=== PATIENT | female | born 1935 | race Caucasian/White ===

== ENCOUNTER → 2016-07-13 | Outpatient (CLI) | payer MEDICARE, OTHER | END | disposition home or self-care (01) | LOC: GMAB 10:16 | PROVIDERS: ATTEND Family Medicine | DX: I10 Essential (primary) hypertension (principal) ==

== ENCOUNTER → 2016-08-25 | Outpatient (CLI) | payer MEDICARE, OTHER ==
--- NOTE | 2016-08-26 10:57 | MAM ---
History: Well woman exam. Date of exam: 08/25/2016 Services provided: Bilateral full field digital screening mammography. CAD, the images were reviewed with R2 computer aided detection. FINDINGS: Glandular tissue is scattered glandular contour. Comparison with 2014 exam. No dominant mass, architectural distortion or clustered microcalcification. IMPRESSION: Benign exam Recommendation: Routine annual mammography BIRAD CATEGORY: 2 BENIGN Electronically signed by: Erlinda Moreira MD 08/26/2016 10:42 AM CDT
== END ==
LOC: MAMMO 14:00
PROVIDERS: ATTEND Family Medicine
DX: Z12.31 Encounter for screening mammogram for malignant neoplasm of breast (principal)

== ENCOUNTER 2016-09-08 05:49 | Day surgery (SDC) | payer MEDICARE, OTHER ==
--- NOTE | 2016-08-26 09:52 | HP ---
CHIEF COMPLAINT: Cyst on digit. HISTORY OF PRESENT ILLNESS: Ms. Ewing is an 81-year-old female with a history of mass overlying the proximal proximal interphalangeal joint on the fourth digit on the left hand. She has had no trauma related to this, no neurologic symptoms, and denies any radiation of pain. She states it does cause some difficulty when she bumps the finger, but otherwise no acute pain Because of the cyst and the discomfort frequently associated with that, she would like to have excision of that cyst. We talked about the risks, benefits and alternatives to that and the patient has given informed consent. PAST SURGICAL HISTORY: 1. Hysterectomy. 2. Total knee replacement. MEDICATIONS: 1. Lyrica. 2. Ramipril. 3. Meclizine. 4. Atorvastatin. 5. Fenofibrate. 6. VESIcare. 7. Duloxetine. 8. Hydrocodone. 9. Gabapentin. ALLERGIES: NO KNOWN DRUG ALLERGIES. CODE STATUS: Full code. IMMUNIZATIONS: Up to date. SOCIAL HISTORY: The patient does not drink, smoke or use any illicit drugs. FAMILY HISTORY: None pertinent to today's complaint. REVIEW OF SYSTEMS: Negative except as indicated in the History of Present Illness. PHYSICAL EXAMINATION: VITAL SIGNS: Blood pressure 123/61. Pulse 74. Height 5'. Weight 165. MENTAL STATUS: The patient is awake, alert, and is able to give a good history and participate in the physical. The patient is oriented to person, place and time. SKIN: Normal tone and turgor. MUSCULOSKELETAL: She has about a 4 to 5 mm mass that does not appear to be fixed to the overlying skin. It does not move with tendon excursion. She does have some slight discomfort with deep palpation, however, there is no overlying erythema. She does maintain full range of motion in all the digits. ASSESSMENT: 1. Cyst. PLAN: The plan at this point is for excision of this cyst. We have discussed the risks, benefits, and alternatives to that inclusive of the possibility of recurrence and she understands and has given informed consent. #[id number] [facility]
[2016-09-08] MEDS ORDERED: LACTATED RINGERS 1,000 ML ONE (06:00)
[2016-09-08] MEDS ORDERED: ceFAZolin SODIUM 1 GM VIAL ONE (06:00)
[2016-09-08] MEDS ORDERED: SODIUM CHL 0.9% 100ML MINI-BAG 100 ML IVPB ONE (06:00)
[2016-09-08] MEDS ORDERED: PROPOFOL 200 MG/20 ML VIAL IV ONE (06:28)
[2016-09-08] MEDS ORDERED: LIDOCAINE 1% 10 ML VIAL INJ ONE (06:28)
[2016-09-08] MEDS ORDERED: fentaNYL CITRATE INJ 50 MCG/ML AMP IV ONE (06:28)
[2016-09-08] MEDS ORDERED: BUPIVACAINE 0.25% INJ 30 ML VIAL INJ ONE (06:31)
[2016-09-08] MEDS ORDERED: LIDOCAINE 1% 50 ML VIAL INJ ONE (06:31)
[2016-09-08 06:54] VITALS: O2SAT 96
[2016-09-08] MEDS: ceFAZolin SODIUM 1 GM VIAL ONE ×2 (07:24→07:35)
[2016-09-08] MEDS: VANCOMYCIN HCL INJ 1,000 MG VIAL IVPB ONE ×2 (07:25→07:35)
[2016-09-08 08:13] VITALS: BP 148/85; TEMP 96.6
--- NOTE | 2016-09-08 08:59 | OP ---
DATE OF PROCEDURE: 09/08/16 PREOPERATIVE DIAGNOSIS: 1. Ganglion cyst, left fourth proximal interphalangeal joint. POSTOPERATIVE DIAGNOSIS: 1. Ganglion cyst, left fourth proximal interphalangeal joint. PROCEDURE: 1. Excision of cyst. SURGEON: Jonny Mendosa MD. BARBED WIRE MACHINE OPERATOR: Antelmo Pichardo CST, SA-C. ANESTHESIA: Local with sedation. COMPLICATIONS: None. FINDINGS: About a 3 to 4 mm cyst arising from the proximal interphalangeal joint dorsally from the fourth digit. INDICATION: Ms. Ewing has a history of slowly growing mass with some irritation of the dorsum of the cyst. There is no evidence of infection. Because of the local irritation, she requested excision of the mass. After discussing the risks, benefits and alternatives to that, she has given informed consent for that. PROCEDURE: The patient was brought to the Operating Room and placed in supine position. Sedation was administered and a ring block was performed. Following that, the hand was sterilely prepped and draped. An incision was made directly over the mass. Blunt dissection was used to core out the mass and its stalk was identified. Following identification of the stalk, it was sharply transected and the base was cauterized. There was no evidence of remaining diseased tissue. The wound was irritated. Sterile dressings were placed. The patient was awoken from anesthesia and taken to Recovery. POSTOPERATIVE INSTRUCTIONS: She will followup with us in two days. #[id number] [facility]
== END 2016-09-08 08:15 | disposition home or self-care (01) ==
LOC: AMB 05:49
PROVIDERS: ATTEND Orthopaedic Surgery
DX: M67.442 Ganglion, left hand (principal); Z96.659 Presence of unspecified artificial knee joint; Z79.899 Other long term (current) drug therapy
CPT/HCPCS: 01810; 26160; 87070; 88304; J0690; J3010; J3370; J3490; J7050; J7120

== ENCOUNTER → 2016-09-16 | Outpatient (CLI) | payer MEDICARE, OTHER | END | disposition home or self-care (01) | LOC: GMAB 11:27 | PROVIDERS: ATTEND Family Medicine | DX: R53.82 Chronic fatigue, unspecified (principal); M25.572 Pain in left ankle and joints of left foot ==

== ENCOUNTER → 2016-09-30 | Outpatient (CLI) | payer MEDICARE, OTHER ==
--- NOTE | 2016-10-02 13:50 | RAD ---
EXAM DESCRIPTION: Shoulder,Right 2 or More Views CLINICAL HISTORY: 81 years,Female,PAIN IN RIGHT SHOULDER COMPARISON: None FINDINGS: The right shoulder demonstrates no evidence of fractures or dislocations or acute abnormalities. The acromial clavicular joint mildly hypertrophic mostly superior. The included lung gilman are unremarkable. There is no significant lateral down sloping of the acromion. But there is severe narrowing of the supraspinatus outlet with undersurface remodeling of the acromion. IMPRESSION: Right shoulder demonstrates Severe narrowing of the rotator cuff outlet with evidence of chronic findings indicating probable chronic rotator cuff injury. Moderate AC joint arthritis Electronically signed by: Sadiq Souza MD 10/02/2016 1:50 PM CDT
--- NOTE | 2016-10-02 13:50 | RAD ---
EXAM DESCRIPTION: Elbow,Right 3 Views CLINICAL HISTORY: 81 years,Female,PAIN IN RIGHT ELBOW COMPARISON: None FINDINGS: The right elbow demonstrates no evidence of fractures or acute abnormalities. There is no joint effusion. Soft tissues appear unremarkable. Minimal osteophyte changes about the right elbow IMPRESSION: Minimal right elbow osteoarthritic changes age appropriate. Electronically signed by: Sadiq Souza MD 10/02/2016 1:51 PM CDT
== END | disposition home or self-care (01) ==
LOC: RAD 08:33
PROVIDERS: ATTEND Orthopaedic Surgery
DX: M75.101 Unspecified rotator cuff tear or rupture of right shoulder, not specified as traumatic (principal)

== ENCOUNTER → 2016-12-01 | Outpatient (CLI) | payer MEDICARE, OTHER ==
--- NOTE | 2016-12-02 08:37 | CT ---
EXAM DESCRIPTION: Lumbar Spine CLINICAL HISTORY: 81 years, Female, LOW BACK PAIN COMPARISON: None TECHNIQUE: Lumbar CT with thin-section axial imaging with reconstructed MPR images reviewed as well. This exam was performed according to our departmental dose-optimization program, which includes automated exposure control, adjustment of the mA and/or kV according to patient size and/or use of iterative reconstruction technique. FINDINGS: Lumbar spine CT with MPR reformatted images demonstrates severe diffuse degenerative disc disease and vacuum phenomenon with relative sparing of the disc space at L3-4. Grade 2 spondylolisthesis of L5 on S1 with severe vacuum phenomenon and disc space narrowing and bilateral hypertrophic L5 pars defects are noted with marked distortion of the central canal and L5 neural foramina. Very mild grade 1 degenerative spondylolisthesis at L4-5 with marked posterior element facet hypertrophy is present without pars defects. Modest retrolisthesis at the L2-3 level is present. Vertebral height is maintained at all levels with endplate sclerotic and cystic degenerative changes and vacuum phenomenon at each disc level without compression deformities. The spine has essentially normal alignment from T12-L1 cephalad with preservation of disc height with mild a vacuum phenomena within each disc space at this level and T11-12. Very slight retrolisthesis of L1 on L2 is also apparent. The disc contours at T11-12 and T12-L1 are essentially normal with minimal annular prominence. Slight prominence of the disc at the L1-2 and L2-3 levels related to the retrolisthesis is noted with adequate central canal. Moderate annular bulge is present at L3-4 and a symmetric fashion with adequate canal and advanced facet arthropathy. At L4-5 advanced degenerative disc disease and vacuum phenomenon is present with severe facet arthropathy but adequate L4 neural foramina and central canal. At L5-S1 marked distortion of the canal is present. Vacuum phenomenon and bone on bone sclerotic appearance of the L5-S1 disc is present. Even with the bilateral L5 pars defects there is posterior element hypertrophy and borderline stenosis between the sacral promontory inferiorly and the hypertrophic posterior elements superiorly from the L4-5 level above. Borderline AP diameter canal stenosis is suspected. Below this level the upper sacral spinal canal is adequate. Coronal imaging demonstrate moderate dextroscoliosis of the spine with slightly greater narrowing of the left-sided neural foramen on this basis. The paraspinous region and retroperitoneum show no mass or hematoma or evidence of aneurysm. IMPRESSION: 1. Severe diffuse disc degenerative disease with vacuum phenomena and moderate dextroscoliosis of the spine with mild retrolisthesis of the vertebral bodies at L1-2 and L2-3 and degenerative spondylolisthesis at L4-5 and grade 2 spondylolisthesis with pars defects at L5-S1. 2. Significant distortion of the spinal canal and thecal sac with adequate canal throughout its course except for borderline AP diameter canal narrowing between the sacral promontory inferiorly at the L5-S1 level in the hypertrophic posterior elements superiorly at the L4-5 level. 3. Disc degeneration and vacuum phenomenon at essentially all levels visualized with relative sparing of the L3-4 disc level as well as T11-12 and T12-L1. No vertebral compression deformities or destructive process is seen. Electronically signed by: Tyree Jaimes MD 12/02/2016 8:35 AM CDT
== END | disposition home or self-care (01) ==
LOC: CT 09:41
PROVIDERS: ATTEND Physical Medicine & Rehabilitation
DX: M54.5 Low back pain (principal)

== ENCOUNTER → 2017-01-18 | Outpatient (CLI) | payer MEDICARE, OTHER ==
--- NOTE | 2017-01-18 10:51 | MAM ---
EXAM DESCRIPTION: Diagnostic Mammo,Right CLINICAL HISTORY: 81 yearsFemaleMASTODYNIA. Right breast enlarging. Remote family history of breast cancer. Postmenopausal. No HRT. COMPARISON: Digital screening bilateral study 08/25/2016. TECHNIQUE: Digital full field images of the right breast in the MLO, CC, and LM projections. CAD was utilized. FINDINGS: Breast density parenchymal pattern is scattered fibroglandular densities. Vascular calcifications. Scattered solitary microcalcifications anterior breast. Small axillary lymph nodes. No focal mass density, no focal asymmetry, and no suspicious microcalcifications. Stable mammograms compared to the prior right breast on the screening study in 08/25/2016. IMPRESSION: BI-RADS CATEGORY: 2 - BENIGN FINDINGS. FOLLOW UP: Return to routine digital bilateral screening, August 2017. Written communication explaining the IMPRESSION and follow-up, will be mailed to the patient and referring health care provider. According to the [employer], yearly mammograms are recommended starting at age 40 and continuing as long as a woman is in good health. Any breast change noted on a breast self-exam should be reported promptly to the patient's healthcare provider. Breast MRI is recommended for women with an approximately 20-25% or greater lifetime risk of breast cancer, including women with a strong family history of breast or ovarian cancer and women who have been treated for Hodgkin's disease. A negative mammographic report should not delay tissue diagnosis in patients with significant clinical history or physical findings. Extremely dense breast tissue limits the sensitivity of digital mammography. The results and follow-up were discussed by the technologist with the patient. Written communication explaining the results and followup will be mailed to the patient and referring care provider. Electronically signed by: Antelmo Ferraro MD 01/18/2017 10:49 AM CDT
== END | disposition home or self-care (01) ==
LOC: MAMMO 13:47
PROVIDERS: ATTEND Family Medicine
DX: N64.4 Mastodynia (principal)

== ENCOUNTER → 2017-03-23 | Outpatient (CLI) | payer MEDICARE, OTHER | END | disposition home or self-care (01) | LOC: GMAB 14:44 | PROVIDERS: ATTEND Family Medicine | DX: R11.2 Nausea with vomiting, unspecified (principal) ==

== ENCOUNTER → 2017-07-18 | Outpatient (CLI) | payer MEDICARE, OTHER | LOC: GMAB 11:33 | PROVIDERS: ATTEND Family Medicine | DX: I10 Essential (primary) hypertension (principal); N39.0 Urinary tract infection, site not specified ==

== ENCOUNTER → 2017-08-19 | Outpatient (CLI) | payer OTHER | LOC: LAB.O 10:11 | PROVIDERS: ATTEND Psychiatry & Neurology Neurology | DX: M45.0 Ankylosing spondylitis of multiple sites in spine (principal); G04.89 Other myelitis; G72.9 Myopathy, unspecified; M81.8 Other osteoporosis without current pathological fracture; G61.81 Chronic inflammatory demyelinating polyneuritis; B02.29 Other postherpetic nervous system involvement; M54.16 Radiculopathy, lumbar region; I73.00 Raynaud's syndrome without gangrene; G25.89 Other specified extrapyramidal and movement disorders; M32.10 Systemic lupus erythematosus, organ or system involvement unspecified; M31.6 Other giant cell arteritis; I77.9 Disorder of arteries and arterioles, unspecified ==

== ENCOUNTER → 2018-01-19 | Outpatient (CLI) | payer OTHER ==
--- NOTE | 2018-01-20 08:29 | MAM ---
EXAM DESCRIPTION: 3D Screening BILATERAL : Digital Mammography. CLINICAL HISTORY: 82 years Female SCREENING . No complaints. No personal history or family history of breast cancer. Childbirth. Postmenopausal. No HRT. Lifetime risk of developing breast cancer (Tyrer-Cuzick model)(%): 1.4 COMPARISON: 2-D digital screening bilateral study 08/25/2016. No prior reports available. TECHNIQUE: Bilateral CC and MLO projection full-field images, Digital tomosynthesis mammographic technique. Bilateral digital 2-D full-field MLO images. CAD not utilized. FINDINGS: The breast parenchymal density pattern is: Scattered areas of fibroglandular density. No skin thickening or nipple retraction. Bilateral solitary microcalcifications. Bilateral vascular calcifications. No new focal, stellate mass or density, focal asymmetry , and no suspicious microcalcifications bilaterally. Stable mammograms compared to prior study. Taking into account, differences in mammographic technique. IMPRESSION: Benign exam. BIRAD CATEGORY: 2 BENIGN FINDINGS. RECOMMENDATIONS: FOLLOW UP: Routine digital bilateral screening, one year interval from December 2017. Written communication explaining the IMPRESSION and follow-up, will be mailed to the patient and referring health care provider. According to the [employer], yearly mammograms are recommended starting at age 40 and continuing as long as a woman is in good health. Any breast change noted on a breast self-exam should be reported promptly to the patient's healthcare provider. Breast MRI is recommended for women with an approximately 20-25% or greater lifetime risk of breast cancer, including women with a strong family history of breast or ovarian cancer and women who have been treated for Hodgkin's disease. A negative mammographic report should not delay tissue diagnosis in patients with significant clinical history or physical findings. Extremely dense breast tissue limits the sensitivity of digital mammography. Electronically signed by: Antelmo Ferraro MD 01/20/2018 8:27 AM CDT
== END ==
LOC: MAMMO 13:30
PROVIDERS: ATTEND Family Medicine
DX: Z12.31 Encounter for screening mammogram for malignant neoplasm of breast (principal)

== ENCOUNTER 2018-02-09 12:36 | Inpatient (IN) | payer OTHER ==
--- NOTE | 2018-02-09 12:57 | ED.PDOC ---
History of Present Illness - General Chief Complaint: General Stated Complaint: weakness Time Seen by Provider: 02/09/18 12:39 Source: patient, family - History of Present Illness Initial Comments: THIS PATIENT COMES TO THE ED BY AMBULANCE. SHE USES A WALKER NORMALLY AND WITH SOME ASSISTANCE IS ABLE TO MOVE AROUND THE HOUSE BUT FOR THE PAST WEEK SHE HAS BECOME WEAKER AND WEAKER. THE HOME HEALTH NURSE VISITED TODAY AND RECOMMENDED SHE COMES TO THE ED AND BE CHECKED. SHE DENIES ANY VOMITING OR DIARRHEA, NO FEVER OR CHILLS OR SHAKES, NO DYSURIA, NO SOB AND NO CHEST PAIN. DENIES ANY FALLS OR ANY RECENT INJURIES. Timing/Duration: 1 week Severity: moderate Improving Factors: nothing Worsening Factors: nothing Associated Symptoms: denies symptoms Allergies/Adverse Reactions: Allergies Ciprofloxacin [From Cipro] Allergy (Verified 08/01/15 08:29) Naproxen [From Aleve] Allergy (Verified 08/01/15 08:32) Home Medications: Ambulatory Orders Aspirin [Aspirin Adult Low Dose] 81 mg PO DAILY 07/18/15 Atorvastatin Calcium [Lipitor] 20 mg PO BEDTIME 07/18/15 Fenofibrate [Tricor] 145 mg PO DAILY 07/18/15 Multiple Vitamins W/ Minerals [Centrum Silver] 1 tab PO DAILY 07/18/15 Raloxifene HCl [Evista] 60 mg PO DAILY 07/18/15 Ramipril [Altace] 5 mg PO DAILY 07/18/15 Furosemide [Lasix] 40 mg PO PRN PRN 12/26/15 Bisacodyl Suppository 10Mg [Dulcolax Suppository 10mg] 10 mg MT DAILY 02/09/18 Calcium Carbonate 600 mg PO DAILY 02/09/18 Diclofenac Sodium (Topical) [Diclofenac Sodium] 1 % TD TID PRN 02/09/18 Escitalopram [Lexapro] 10 mg PO DAILY 02/09/18 Meloxicam [Mobic] 15 mg PO BEDTIME 02/09/18 Memantine HCl-Donepezil HCl [Namzaric 28-10 mg] 1 cap PO BEDTIME 02/09/18 Ondansetron HCl [Zofran] 4 mg PO Q6HR PRN 02/09/18 Oxcarbazepine [Trileptal] 150 mg PO DAILY 02/09/18 Oxybutynin Chloride 10 mg PO BEDTIME 10/18/18 Potassium Citrate (Alkalinizer [Potassium Citrate ER] 1,080 mg PO DAILY Sennosides-Docusate Sodium [Senokot S] 2 tab PO BID PRN 02/09/18 Review of Systems - Review of Systems Constitutional: States: weakness EENTM: States: no symptoms reported Respiratory: States: no symptoms reported Cardiology: States: no symptoms reported Gastrointestinal/Abdominal: States: no symptoms reported Genitourinary: States: no symptoms reported Musculoskeletal: States: no symptoms reported Skin: States: no symptoms reported Neurological: States: other - HAS NEUROPATHY AND WORSENING WEAKNESS Endocrine: States: no symptoms reported Hematologic/Lymphatic: States: no symptoms reported Past Medical History (General) - Patient Medical History Hx Seizures: No Hx Stroke: No Hx Asthma: No Hx of COPD: No Hx Cardiac Disorders: No Hx Congestive Heart Failure: No Hx Pacemaker: No Hx Hypertension: Yes Hx Diabetes: No Hx MRSA: No - Vaccination History Hx Tetanus, Diphtheria Vaccination: No Hx Influenza Vaccination: No Hx Pneumococcal Vaccination: Yes - Social History Hx Tobacco Use: No Hx Alcohol Use: No Hx Substance Use: No Hx Physical Abuse: No Hx Emotional Abuse: No - Female History Patient : No Family Medical History - Family History Mother Family History: Unknown Living Status: Father Living Status: Cause of : AR Physical Exam - Physical Exam General Appearance: Alert, No apparent distress, Well Developed, Well Groomed Eye Exam: bilateral normal Ears, Nose, Throat: hearing grossly normal, normal ENT inspection, normal pharynx Neck: non-tender, full range of motion, supple, normal inspection Respiratory: chest non-tender, lungs clear, normal breath sounds, no respiratory distress Cardiovascular/Chest: normal peripheral pulses, regular rate, rhythm, no edema, no gallop, no JVD Peripheral Pulses: radial,right: 2+, radial,left: 2+ Gastrointestinal/Abdominal: normal bowel sounds, non tender, soft, no organomegaly, no pulsatile mass Rectal Exam: deferred Back Exam: normal inspection Extremity: normal inspection, other - SHE IS WEAK ON ALL EXTREMITIES Neurologic: alert, normal mood/affect, oriented x 3, motor weakness - 3/5 ON ALL EXTREMITIES Skin Exam: normal color Progress - Results/Orders Results/Orders: EKG: HR OF 69, MT INTERVAL OF 160, QRS OF 88, QTC OF 441, AXES OF 6 DEGREES. IMPRESSION: SINUS RHYTHM, NO ACUTE INJURY PATTERN. THE CHEST X RAY HAS A SMALL OPACITY ON THE LLL THAT COULD BE A PNEUMONIA OR ATHELECTASIS. SHE HAS A MILD HYPONATREMIA OF 129 THE PATIENT WILL BE TREATED WITH ANTIBIOTICS BUT THE GENERALIZED WEAKNESS HAS BECOME AN ISSUE. THE PATIENT WANTS TO GO BACK HOME. SHE ALSO TELLS ME THAT SHE RECENTLY WAS AT [facility] IN [place]. I PERSONALLY THINK THAT SHE MIGHT NEED MORE REHAB AND IF NOT IMPROVED CONSIDER OTHER ALTERNATIVE. THE AT THE BEDSIDE IS SENILE AND WEAK. I HAVE SEND FOR MANAGER NEW PRODUCT FOR EVALUATION. Departure - Departure Clinical Impression: Weakness, Hyponatremia Pneumonia Qualifiers: Pneumonia type: due to unspecified organism Laterality: left Lung location: lower lobe of lung Qualified Code(s): J18.1 - Lobar pneumonia, unspecified organism Time of Disposition: 15:11 Disposition: Admit Patient Condition: Fair Departure Forms: ED Discharge - Pt. Copy, Patient Portal Self Enrollment Referrals: ANASTACIO HUBBARD MD [Primary Care Provider] - 1-2 Weeks Home Medications: Ambulatory Orders Aspirin [Aspirin Adult Low Dose] 81 mg PO DAILY 07/18/15 Atorvastatin Calcium [Lipitor] 20 mg PO BEDTIME 07/18/15 Fenofibrate [Tricor] 145 mg PO DAILY 07/18/15 Multiple Vitamins W/ Minerals [Centrum Silver] 1 tab PO DAILY 07/18/15 Raloxifene HCl [Evista] 60 mg PO DAILY 07/18/15 Ramipril [Altace] 5 mg PO DAILY 07/18/15 Furosemide [Lasix] 40 mg PO PRN PRN 12/26/15 Bisacodyl Suppository 10Mg [Dulcolax Suppository 10mg] 10 mg MT DAILY 02/09/18 Calcium Carbonate 600 mg PO DAILY 02/09/18 Diclofenac Sodium (Topical) [Diclofenac Sodium] 1 % TD TID PRN 02/09/18 Escitalopram [Lexapro] 10 mg PO DAILY 02/09/18 Meloxicam [Mobic] 15 mg PO BEDTIME 02/09/18 Memantine HCl-Donepezil HCl [Namzaric 28-10 mg] 1 cap PO BEDTIME 02/09/18 Ondansetron HCl [Zofran] 4 mg PO Q6HR PRN 02/09/18 Oxcarbazepine [Trileptal] 150 mg PO DAILY 02/09/18 Oxybutynin Chloride 10 mg PO BEDTIME 02/09/18 Potassium Citrate (Alkalinizer [Potassium Citrate ER] 1,080 mg PO DAILY Sennosides-Docusate Sodium [Senokot S] 2 tab PO BID PRN 02/09/18 Decision To Admit - Decistion To Admit Decision to Admit Date: 02/09/18 Decision to Admit Time: 15:07
--- NOTE | 2018-02-09 14:11 | RAD ---
Study: Single Frontal View of the Chest. Indication:SOB Comparison: August 09, 2015 Impression: Cardiomegaly. Mild basilar atelectasis versus pneumonia. No pleural effusion or pneumothorax. Follow-up resolution recommended. No acute osseous abnormality. Dorsal column stimulator device noted. Electronically signed by: Srinivasan Lambert MD 02/09/2018 2:09 PM CDT
[2018-02-09] MEDS ORDERED: cefTRIAXone SODIUM 1 GM in SODIUM CHL 0.9% 50ML MIN-BAG+ 50 ML IVPB ONE (15:07)
[2018-02-09] MEDS ORDERED: SODIUM CHL 0.9% 50ML MIN-BAG+ 50 ML IVPB ONE (15:23)
[2018-02-09] MEDS ORDERED: cefTRIAXone SODIUM 1 GM VIAL ONE (15:23)
--- NOTE | 2018-02-09 15:58 | HP ---
SUPERVISING PHYSICIAN: Rubin Tavares M.D. CHIEF COMPLAINT: Weakness and falls. HISTORY OF PRESENT ILLNESS: This is an 82 year-old female patient who typically uses a walker at home to get around. She has to have some assistance by her or caregivers to help her get around, but in the last 3 or 4 days she has become much weaker and has had to have full assistance. Her actually is unable to help her. She has actually had 2 to 3 falls in the last few days. Several times EMS has been called just to get her up out of the floor, but has never come to the Emergency Room. Today, she was trying to get to the bathroom and fell. She was incontinent of stool and she was brought to the hospital. In the hospital, her vital signs initially showed her O2 sat was 90% on room air. She had a temperature of 99.5 with a heart rate of 70, blood pressure 193/88 with respiratory rate 24. Laboratory findings showed sodium 129, potassium 4.8, chloride 94, carbon dioxide 30, anion gap 9.8, BUN 20 , creatinine 0.9, glucose 94, serum osmolality 261.3, AST 47 and serum total protein 5.6. Troponin was 0.02. Urinalysis was basically within normal limits. CBC showed a white count of 5.7, hemoglobin 12.3, hematocrit 37.9. Chest x-ray showed cardiomegaly with mild basilar atelectasis versus pneumonia. No pleural effusion or pneumothorax. Followup resolution was recommended. She received some Rocephin in the Emergency Room. I was called for hospital admission. PAST MEDICAL HISTORY: 1. Hyperlipidemia. 2. Chronic low back pain. 3. Depression. 4. Dizziness and vertigo. 5. Hypertension. 6. Lumbar radiculopathy. 7. Shingles. PAST SURGICAL HISTORY: 1. Hysterectomy. 2. Left foot surgery. 3. Pain pump stimulator in 2011. CURRENT MEDICATIONS: ALLERGIES: ALEVE, CIPRO, AMITRIPTYLINE AND TRINTELLIX. FAMILY HISTORY: Positive for myocardial infarction. SOCIAL HISTORY: She is retired. She is . She lives at home with her . She has 2 children. She denies any tobacco, ETOH or illicit drug use. REVIEW OF SYSTEMS: GENERAL: Positive for fatigue. Negative for fever or weight changes. HEENT: Positive for sinus symptoms, nasal congestion. Negative for sore throat or vision changes. RESPIRATORY: Negative for coughing, wheezing or shortness of breath. CARDIAC: Negative for palpitations, tachycardia or chest pain. GASTROINTESTINAL: Negative for nausea, vomiting, diarrhea or constipation. GENITOURINARY: Negative for hematuria, dysuria or polyuria. MUSCULOSKELETAL: As per history of present illness with muscle weakness. Negative for arthralgias. SKIN: Negative for lesions or rashes. NEUROLOGIC: Positive for neuropathy and increasing progressive weakness. Negative for seizures. PHYSICAL EXAMINATION: VITAL SIGNS: Temperature 99, heart rate 78, blood pressure 173/84, respiratory rate 20, O2 sat 95%. GENERAL: This is an 82 year-old female patient lying in her hospital bed. She is in no acute distress. HEENT: Normocephalic and atraumatic. Pupils are equal and reactive. There is a small amount of nasal drainage. Oropharynx is clear. NECK: Supple without mass. RESPIRATORY: Diminished at the bases. Diffuse scattered rhonchi. CHEST: There is equal rise and fall of the chest with inspiration and expiration. CARDIOVASCULAR: Regular rate and rhythm. GASTROINTESTINAL: Abdomen is soft, nondistended, non-tender. Bowel sounds are positive. EXTREMITIES: No cyanosis, clubbing or edema. NEUROLOGIC: She is awake, alert and oriented times three. LABORATORY: Labs and films are as per the History of Present Illness. ASSESSMENT: 1. Bilateral lower lobe pneumonia community acquired. 2. Hyponatremia. 3. Generalized weakness and decreased ability to perform activities of daily living most likely secondary to #1 and #2. 4. Elevated AST. 5. Hypertension. 6. Dehydration. 7. Hyperlipidemia. 8. Chronic low back pain. 9. Peripheral neuropathy. PLAN: We will admit the patient to the hospital. I have initiated pneumonia guidelines. She will be placed on fluid restrictions as well as I will give her some normal saline IV fluids. She will be started on azithromycin and continue with Rocephin from the Emergency Room. Physical therapy will be consulted. Will do neurologic checks every 4 hours. A PPI has been started for ulcer prophylaxis as well as Lovenox for DVT prophylaxis. She does have a Gongora catheter that was placed in the Emergency Room and we will do bladder training in a couple of days after she regains some of her strength. She had been in [facility] around the first part of November for some dizziness and vertigo. The family has expressed a consideration of placing the patient back in [facility] if her insurance accepts her to go that rehab facility. I have repeated her lab for in the morning. She will have good pulmonary hygiene. We will follow her closely and treat as needed. #[id number] [facility]
[2018-02-09] MEDS ORDERED: SODIUM CHLORIDE 0.9% (FLUSH) 10 ML SYG IV PRN (18:19)
[2018-02-09] MEDS ORDERED: LEVALBUTEROL NEBS 1.25 MG/3 ML VIAL INH PRN (18:21)
[2018-02-09] MEDS ORDERED: SODIUM CHLORIDE 0.9% 1000ML 1,000 ML IVS ONE (18:24)
[2018-02-09] MEDS ORDERED: SENNA/DOCUSATE TAB 1 EA TAB PO PRN (18:27)
[2018-02-09] MEDS: IV SET AND CAP CHANGE INJ INJ SCH (18:31)
[2018-02-09] MEDS ORDERED: AZITHROMYCIN IV 500 MG VIAL IVPB ONE (18:32)
[2018-02-09] MEDS ORDERED: SODIUM CHLORIDE 0.9% 250ML 250 ML ONE (18:32)
[2018-02-09] MEDS: AZITHROMYCIN IV 500 MG in SODIUM CHLORIDE 0.9% 250ML 250 ML IVPB SCH (18:35)
[2018-02-09] MEDS ORDERED: MELOXICAM 7.5 MG TAB ONE (20:13)
[2018-02-09] MEDS: LEVALBUTEROL NEBS 1.25 MG/3 ML VIAL INH SCH (20:40)
[2018-02-09] MEDS ORDERED: NON-FORMULARY MEDICATION 1 EA MIS (Meloxicam [Mobic] 15 MG) PO SCH (21:00)
[2018-02-09] MEDS ORDERED: OXYBUTYNIN CL 5 MG TAB PO SCH (21:00)
[2018-02-09] MEDS: ONDANSETRON INJ 4 MG/2 ML VIAL IV PRN (21:20)
[2018-02-09] MEDS: ENOXAPARIN SODIUM 40 MG/0.4 ML SYG SUBCU SCH (21:20)
[2018-02-09] MEDS: ATORVASTATIN 20 MG TAB PO SCH (21:20)
[2018-02-09] MEDS: MEMANTINE HCL DONEPEZIL HCL PO SCH (21:23)
[2018-02-09] MEDS: SODIUM CHLORIDE 0.9% (FLUSH) 10 ML SYG IV SCH (21:59)
[2018-02-10] MEDS ORDERED: PANTOPRAZOLE SODIUM IV 40 MG VIAL IV SCH (06:30)
--- NOTE | 2018-02-10 07:00 | RAD ---
Procedure: XR CHEST 1 VIEW Exam Date: 02/10/2018 Ordering Provider: WILLIE ERAZO Clinical Indication: Pneumonia Comparison: 02/09/2018 Findings: Cardiomegaly. Aortic calcification. Right basilar subsegmental atelectasis and/or infiltrate. Elevation of the right hemidiaphragm. No pleural effusion. No pneumothorax. No acute osseous abnormality. Dorsal column stimulator. Impression: 1. Right basilar subsegmental atelectasis and/or infiltrate, not significantly changed from prior. Electronically signed by: Bradley Asencio MD 02/10/2018 6:59 AM CDT
[2018-02-10] MEDS: RAMIPRIL 5 MG CAP PO SCH (08:24)
[2018-02-10] MEDS: ESCITALOPRAM 10 MG TAB PO SCH (08:24)
[2018-02-10] MEDS: ONDANSETRON INJ 4 MG/2 ML VIAL IV PRN ×3 (08:28→18:32)
[2018-02-10] MEDS: SODIUM CHLORIDE 0.9% (FLUSH) 10 ML SYG IV SCH ×2 (08:31→21:13)
[2018-02-10] MEDS: LEVALBUTEROL NEBS 1.25 MG/3 ML VIAL INH SCH ×4 (08:49→20:39)
[2018-02-10] MEDS ORDERED: NON-FORMULARY MEDICATION 1 EA MIS (Fenofibrate [Tricor] 145 MG) PO SCH (09:00)
[2018-02-10] MEDS ORDERED: MAGNESIUM SULFATE PREMIX 2GM 2 GM in PREMIX BAG 1 BAG IVPB ONE (09:38)
[2018-02-10] MEDS ORDERED: MAGNESIUM SULFATE PREMIX 2GM 50 ML IVPB ONE (10:04)
[2018-02-10] MEDS: OXcarbazepine 300 MG TAB PO SCH (10:10)
[2018-02-10] MEDS ORDERED: FUROSEMIDE INJ 20 MG/2 ML VIAL IV ONE (12:26)
[2018-02-10] MEDS ORDERED: SODIUM CHLORIDE 0.9% 250ML 250 ML ONE (13:22)
[2018-02-10] MEDS ORDERED: SODIUM CHL 0.9% 50ML MIN-BAG+ 50 ML IVPB ONE (13:23)
[2018-02-10] MEDS ORDERED: cefTRIAXone SODIUM 1 GM VIAL ONE (13:23)
[2018-02-10] MEDS ORDERED: AZITHROMYCIN IV 500 MG VIAL IVPB ONE (13:23)
[2018-02-10] MEDS: KCL 20 MEQ/NS 1,000 ML IVS PRN (13:57)
[2018-02-10] MEDS: cefTRIAXone SODIUM 1 GM in SODIUM CHL 0.9% 50ML MIN-BAG+ 50 ML IVPB SCH (13:58)
[2018-02-10] MEDS: RALOXIFENE HCL 60 MG PO SCH (13:59)
[2018-02-10] MEDS: AZITHROMYCIN IV 500 MG in SODIUM CHLORIDE 0.9% 250ML 250 ML IVPB SCH (17:51)
[2018-02-10] MEDS: ACETAMINOPHEN 325 MG TAB PO PRN (18:33)
[2018-02-10] MEDS ORDERED: PANTOPRAZOLE SODIUM TAB 40 MG PO ONE (19:56)
--- NOTE | 2018-02-10 20:00 | PN ---
DATE: 02/10/18 SUPERVISING PHYSICIAN: Rubin Tavares M.D. SUBJECTIVE: The patient continues to be confused with some delirium but he is easily reoriented. She has not been combative but does lose perspective of what is going on where she is at. She has been afebrile. Her family remains at her bedside. OBJECTIVE: VITAL SIGNS: Temperature 97.9, pulse 80, blood pressure 135/80, respirations 18, satting 92% on nasal cannula at 2 liters. I's and O's show a positive balance of 350 with 1550 out, 1200 in. Weight is 76.7 kg. GENERAL: The patient appears to be resting comfortably in no acute distress. She is alert. CHEST: Lung sounds are clear to auscultation bilaterally. HEART: Regular rate and rhythm. ABDOMEN: Obese but soft, non-tender. Positive bowel sounds. EXTREMITIES: She moves all extremities ad rafael with no notable weaknesses. There is no clubbing, cyanosis or edema. NEUROLOGIC: Cranial nerves II-XII are grossly intact as tested, facial features being symmetrical. Extraocular movements are within normal limits. There is no notable nystagmus. She is alert and oriented times three. LABORATORY: White count 4,600, hemoglobin 11.4, hematocrit 34.8, platelet count 166,000. Differential shows to be without a left shift. Chemistries continue to show a persistent hyponatremia at 129, potassium 4.3, BUN 16, creatinine 0.92. Calcium is low at 8.2, however her albumin is low at 2.9. Magnesium was low at 1.7 requiring replacement. Total bilirubin is normal at 0.7. AST is slightly elevated at 48. All other liver functions were within normal limits. RADIOLOGY: Chest x-ray single view per radiology interpretation showed right basilar subsegmental atelectasis and/or infiltrate not significantly changed from previous exams. ASSESSMENT: 1. Bilateral lower lobe pneumonia community acquired requiring initiation of parenteral antibiotics and showing some slight improvement. 2. Hyponatremia probably secondary to #1 with no history of hyponatremia requiring initiation of fluid restriction and mild diuresis with some Lasix possibly contributing to her generalized weakness and mild confusion. 3. Generalized weakness with increasing inability to perform activities of daily living safely likely secondary to both #1 and #2 awaiting further assessment for rehabilitation placement. 4. Elevated AST returning to baseline. Uncertain etiology. 5. Dehydration exacerbating #3, improving with fluids. 6. Hyperlipidemia, chronic. 7. Chronic low back pain. 8. Chronic peripheral neuropathy. PLAN: Will continue with treatment with antibiotics as well as fluid restrictions. I will go ahead and give her a low dose of Lasix. She does have a Gongora. Will closely monitor her I's and O's. There has been a discussion amongst the family and her daughter as to can we go back to [facility] versus some other plans. Kathleen did show today for an assessment as well as cordage sales representative from [facility]. Will await those decisions to further decide on discharge planning. Until then will continue to monitor closely and treat as needed. #[id number] [facility]
[2018-02-10] MEDS: ENOXAPARIN SODIUM 40 MG/0.4 ML SYG SUBCU SCH (21:11)
[2018-02-10] MEDS: MELOXICAM 7.5 MG TAB PO SCH (21:12)
[2018-02-10] MEDS: MEMANTINE HCL DONEPEZIL HCL PO SCH (21:12)
[2018-02-10] MEDS: ATORVASTATIN 20 MG TAB PO SCH (21:12)
[2018-02-11] MEDS ORDERED: FENOFIBRIC ACID 135 MG CAP ONE (01:11)
[2018-02-11] MEDS: KCL 20 MEQ/NS 1,000 ML IVS PRN ×2 (01:36→14:46)
[2018-02-11] MEDS: ACETAMINOPHEN 325 MG TAB PO PRN ×2 (04:19→14:12)
[2018-02-11] MEDS: PANTOPRAZOLE SODIUM TAB 40 MG PO SCH (05:56)
[2018-02-11] MEDS: LEVALBUTEROL NEBS 1.25 MG/3 ML VIAL INH SCH ×4 (08:34→20:51)
[2018-02-11] MEDS ORDERED: FUROSEMIDE INJ 40 MG/4 ML VIAL IV ONE (08:49)
[2018-02-11] MEDS: ONDANSETRON INJ 4 MG/2 ML VIAL IV PRN (09:12)
[2018-02-11] MEDS: RALOXIFENE HCL 60 MG PO SCH (09:24)
[2018-02-11] MEDS: RAMIPRIL 5 MG CAP PO SCH (09:25)
[2018-02-11] MEDS: FENOFIBRIC ACID 135 MG CAP PO SCH (09:25)
[2018-02-11] MEDS: ESCITALOPRAM 10 MG TAB PO SCH (09:25)
[2018-02-11] MEDS: OXcarbazepine 300 MG TAB PO SCH (09:25)
[2018-02-11] MEDS: SODIUM CHLORIDE 0.9% (FLUSH) 10 ML SYG IV SCH ×2 (09:26→21:04)
[2018-02-11] MEDS ORDERED: BISACODYL SUPPOSITORY 10 MG PR ONE (09:54)
[2018-02-11] MEDS ORDERED: MAGNESIUM HYDROXIDE 30 ML UD PO ONE (09:54)
[2018-02-11] MEDS ORDERED: PROMETHAZINE HCL INJ 12.5 MG in SODIUM CHLORIDE 0.9% 50ML 50 ML IVPB ONE (11:12)
[2018-02-11] MEDS ORDERED: PROMETHAZINE HCL INJ 25 MG/ML VIAL ONE (11:14)
[2018-02-11] MEDS ORDERED: SODIUM CHLORIDE 0.9% 50ML 50 ML ONE (11:14)
[2018-02-11] MEDS: cefTRIAXone SODIUM 1 GM in SODIUM CHL 0.9% 50ML MIN-BAG+ 50 ML IVPB SCH (14:30)
[2018-02-11] MEDS ORDERED: SODIUM CHL 0.9% 50ML MIN-BAG+ 50 ML IVPB ONE (14:35)
[2018-02-11] MEDS ORDERED: cefTRIAXone SODIUM 1 GM VIAL ONE (14:35)
[2018-02-11] MEDS ORDERED: SODIUM CHLORIDE 0.9% 250ML 250 ML ONE (16:03)
[2018-02-11] MEDS ORDERED: AZITHROMYCIN IV 500 MG VIAL IVPB ONE (16:04)
--- NOTE | 2018-02-11 18:31 | PN ---
DATE: 02/11/18 SUPERVISING PHYSICIAN: Rubin Tavares M.D. SUBJECTIVE: The patient still feels like she is weak. She still has a slow speech pattern but is able to articulate her thoughts and words. She remains afebrile. She has become a little emotional at times, especially when referencing to possible discharging to [facility] or intermediate. OBJECTIVE: VITAL SIGNS: Temperature 97.4, pulse 76, blood pressure 161/77, respirations 16, satting 94% on nasal cannula on 1 liter at rest. I's and O's show a negative balance of 700 with 1200 in, 1900 out. Weight is 79.1 kg. GENERAL: The patient has a very flat affect, but alert and answers questions but is slow in articulating her words. There is no obvious slurring of her speech. CHEST: Lungs were clear to auscultation. HEART: Regular rate and rhythm. ABDOMEN: Soft, non-tender. Positive bowel sounds. EXTREMITIES: Without any clubbing, cyanosis or edema. NEUROLOGIC: She is alert and oriented times three. Cranial nerves II-XII remain grossly intact. Facial features remain symmetrical. Extraocular movements are within normal limits. There is no notable nystagmus. LABORATORY: White count this morning is down to 4,600, hemoglobin 11.4, hematocrit 34.8, platelet count 166,000. Differential shows to be without a left shift. Chemistry shows an improving sodium up to 130 with potassium 4.5, BUN 14, creatinine 0.6, calcium 7.9 with albumin 3.7. Magnesium was normal at 2.0. Liver functions continue to show an elevated AST today at 52. ALT and alkaline phosphatase remain within normal limits. MICROBIOLOGY: Blood cultures remain negative at 48 hours. RADIOLOGY: No additional radiographic studies today. ASSESSMENT: 1. Bilateral lower lobe pneumonia community acquired requiring initiation of parenteral antibiotics, showing slow clinical improvement. 2. Persistent hyponatremia exacerbated by#1 with the patient having no notable history of hyponatremia, responding well to fluid restrictions and mild diuresis with Lasix. 3. Electrolyte imbalance with hyponatremia likely contributing to some of her generalized weakness. 4. Generalized weakness resulting in decreasing inability to perform activities of daily living safely felt to be due to #1 and #2. 5. Elevated AST, uncertain etiology, showing to be fairly stable. 6. Dehydration exacerbating #3 but improving with fluids. 7. Hyperlipidemia, chronic. 8. Chronic low back pain on pain management. 9. Chronic peripheral neuropathies. PLAN: Will continue antibiotic therapy with aggressive pulmonary hygiene. Will plan to go ahead and give her an additional dose of Lasix today as well as continue with fluid restrictions hopefully to correct her sodium levels. Again touch base with the family and the patient hopefully be able to discharge to [facility] once we hear back from them as far as the patient's medical acceptance awaiting insurance approval by [facility]. Until discharge will continue to monitor and treat as needed. #[id number] [facility]
[2018-02-11] MEDS: AZITHROMYCIN IV 500 MG in SODIUM CHLORIDE 0.9% 250ML 250 ML IVPB SCH (18:44)
[2018-02-11] MEDS: ATORVASTATIN 20 MG TAB PO SCH (21:02)
[2018-02-11] MEDS: MELOXICAM 7.5 MG TAB PO SCH (21:02)
[2018-02-11] MEDS: MEMANTINE HCL DONEPEZIL HCL PO SCH (21:03)
[2018-02-11] MEDS: ENOXAPARIN SODIUM 40 MG/0.4 ML SYG SUBCU SCH (21:03)
[2018-02-12] MEDS: PANTOPRAZOLE SODIUM TAB 40 MG PO SCH (06:10)
[2018-02-12] MEDS: KCL 20 MEQ/NS 1,000 ML IVS PRN (06:10)
[2018-02-12] MEDS: LEVALBUTEROL NEBS 1.25 MG/3 ML VIAL INH SCH ×4 (08:40→21:16)
[2018-02-12] MEDS: RAMIPRIL 5 MG CAP PO SCH (08:45)
[2018-02-12] MEDS: FENOFIBRIC ACID 135 MG CAP PO SCH (08:45)
[2018-02-12] MEDS: ESCITALOPRAM 10 MG TAB PO SCH (08:45)
[2018-02-12] MEDS: OXcarbazepine 300 MG TAB PO SCH (08:45)
[2018-02-12] MEDS: RALOXIFENE HCL 60 MG PO SCH (08:45)
[2018-02-12] MEDS: SODIUM CHLORIDE 0.9% (FLUSH) 10 ML SYG IV SCH ×2 (08:46→22:04)
[2018-02-12] MEDS ORDERED: FUROSEMIDE INJ 20 MG/2 ML VIAL ONE (09:47)
[2018-02-12] MEDS: FUROSEMIDE INJ 20 MG/2 ML VIAL IV SCH ×2 (09:49→17:08)
--- NOTE | 2018-02-12 14:11 | PN ---
DATE: 02/12/18 SUPERVISING PHYSICIAN: Rubin Tavares M.D. SUBJECTIVE: The patient reports that she is feeling a little bit better this morning but continues to be weak. At the current time there are no family members present during exam. She does note that her leg cramps have gone away since yesterday. She has remained afebrile. OBJECTIVE: VITAL SIGNS: Temperature 97.5, pulse 77, blood pressure 155/76, respirations 16 , saturation 93% on nasal cannula at rest. I's and O's show a positive balance of 250 with 2300 in, 2050 out. Weight is down to 77.0 kg. She has had one bowel movement. GENERAL: The patient is resting in bed. She appears to be comfortable and in no acute distress. She is actually articulating her words better than yesterday. CHEST: Lungs were clear to auscultation, just slightly diminished towards the bases. No rhonchi was noted today. HEART: Regular rate and rhythm with no appreciable murmurs, rubs, or gallops. ABDOMEN: Soft, obese , non-tender. Positive bowel sounds. EXTREMITIES: Without any clubbing, cyanosis or edema. LABORATORY: White count now is at 7,300, hemoglobin 11.5, hematocrit 34.8, stable, platelet count 187,000. Differential showed to be without a left shift. Chemistry shows an improving sodium up to 134 compared to 129 on admission with potassium 4.6, BUN 13, creatinine 0.76.. MICROBIOLOGY: Blood cultures remain negative at 48 hours. RADIOLOGY: No repeat chest x-ray today. . ASSESSMENT: 1. Bilateral lower lobe pneumonia community acquired having responded well to initiation of parenteral antibiotics.. 2. Persistent hyponatremia exacerbated by#1 with the patient having no notable history of hyponatremia, responding well to fluid restrictions and mild diuresis with Lasix. 3. Electrolyte imbalance including hyponatremia likely contributing to some of her generalized weakness improving with treatment. 4. Elevated AST, uncertain etiology, although showing to be stable. 5. Dehydration on admission exacerbating #3 but improving with fluids and fluid management. 6. Hyperlipidemia, chronic. 7. Chronic low back pain on pain management. 8. Chronic peripheral neuropathies. PLAN: At this point, will continue with current plan as her sodium is improving and she is responding well with treatment with azithromycin and Rocephin. Will repeat labs in the morning. Again, hopefully discharge to [facility] in the near future. Until then, continue to monitor and treat as needed. #[id number] [facility]
[2018-02-12] MEDS: cefTRIAXone SODIUM 1 GM in SODIUM CHL 0.9% 50ML MIN-BAG+ 50 ML IVPB SCH (16:00)
[2018-02-12] MEDS ORDERED: cefTRIAXone SODIUM 1 GM VIAL ONE (16:00)
[2018-02-12] MEDS ORDERED: SODIUM CHL 0.9% 50ML MIN-BAG+ 50 ML IVPB ONE (16:00)
[2018-02-12] MEDS ORDERED: AZITHROMYCIN IV 500 MG VIAL IVPB ONE (16:52)
[2018-02-12] MEDS ORDERED: SODIUM CHLORIDE 0.9% 250ML 250 ML ONE (16:52)
[2018-02-12] MEDS: IV SET AND CAP CHANGE INJ INJ SCH (17:09)
[2018-02-12] MEDS: AZITHROMYCIN IV 500 MG in SODIUM CHLORIDE 0.9% 250ML 250 ML IVPB SCH (17:16)
[2018-02-12] MEDS: MELOXICAM 7.5 MG TAB PO SCH (21:03)
[2018-02-12] MEDS: MEMANTINE HCL DONEPEZIL HCL PO SCH (21:03)
[2018-02-12] MEDS: ATORVASTATIN 20 MG TAB PO SCH (21:04)
[2018-02-12] MEDS: ENOXAPARIN SODIUM 40 MG/0.4 ML SYG SUBCU SCH (21:06)
[2018-02-12] MEDS: ACETAMINOPHEN 325 MG TAB PO PRN (21:39)
[2018-02-13] MEDS: KCL 20 MEQ/NS 1,000 ML IVS PRN ×2 (00:01→13:47)
[2018-02-13] MEDS: ACETAMINOPHEN 325 MG TAB PO PRN ×2 (04:42→17:19)
[2018-02-13] MEDS: PANTOPRAZOLE SODIUM TAB 40 MG PO SCH (05:55)
--- NOTE | 2018-02-13 07:18 | RAD ---
EXAM: AP CHEST RADIOGRAPH CLINICAL INDICATION: Pneumonia. COMPARISON: Compared to chest radiograph of February 10, 2017 at 0644 hours. FINDINGS: Cardiac size remains upper limits of normal. Unchanged mild bibasilar pulmonary congestion. No focal pneumonia or pleural effusions on this single view. Bones are intact on this single view. IMPRESSION: Unchanged chest radiograph. No focal pneumonia on this single view. Electronically signed by: Angel Salazar MD 02/13/2018 7:16 AM CDT
[2018-02-13] MEDS: RALOXIFENE HCL 60 MG PO SCH (09:09)
[2018-02-13] MEDS: OXcarbazepine 300 MG TAB PO SCH ×2 (09:09→22:22)
[2018-02-13] MEDS: ESCITALOPRAM 10 MG TAB PO SCH (09:11)
[2018-02-13] MEDS: RAMIPRIL 5 MG CAP PO SCH (09:11)
[2018-02-13] MEDS: FENOFIBRIC ACID 135 MG CAP PO SCH (09:12)
[2018-02-13] MEDS: LEVALBUTEROL NEBS 1.25 MG/3 ML VIAL INH SCH ×5 (09:45→21:00)
[2018-02-13] MEDS ORDERED: GABAPENTIN 300 MG CAP PO SCH (11:30)
[2018-02-13] MEDS: FUROSEMIDE INJ 20 MG/2 ML VIAL IV SCH ×2 (12:00→17:19)
[2018-02-13] MEDS: SODIUM CHLORIDE 0.9% (FLUSH) 10 ML SYG IV SCH ×2 (12:00→21:29)
[2018-02-13] MEDS ORDERED: SODIUM CHL 0.9% 50ML MIN-BAG+ 50 ML IVPB ONE (13:38)
[2018-02-13] MEDS ORDERED: cefTRIAXone SODIUM 1 GM VIAL ONE (13:38)
[2018-02-13] MEDS: LIDOCAINE 5% TOP SCH (13:47)
[2018-02-13] MEDS: cefTRIAXone SODIUM 1 GM in SODIUM CHL 0.9% 50ML MIN-BAG+ 50 ML IVPB SCH (14:04)
--- NOTE | 2018-02-13 15:50 | PN ---
SUPERVISING PHYSICIAN: Tyree Sainz MD DATE: 02/13/18 SUBJECTIVE: The patient this morning looks pretty good. She notes she feels a little bit better. She is actually sitting in a chair. She also notes she continues to have abdominal pain, but she describes it more as a burning and it is around the area where she had shingles in the recent past. She has been afebrile. She has had no nausea or vomiting. OBJECTIVE: VITAL SIGNS: Temperature 98.1. Pulse 80. Blood pressure 163/84. Respirations 16. Saturation 97% on room air. I&Os show negative balance of 520 with 2030 in , 2550 out. She has had a bowel movement. Weight 74.5 kg. GENERAL: The patient is resting in bedside chair. She is alert and communicative. CHEST: Lungs were clear today, just slightly diminished towards the bases. HEART: Regular rate and rhythm. ABDOMEN: Soft, but some tenderness noted on the far left lower quadrant, more so with just light touch, described as burning. EXTREMITIES: Without any clubbing, cyanosis or edema. LABORATORY: Chemistries today show normal electrolytes with normalized sodium at 135. Potassium 4.3, BUN 14, creatinine 0.74, serum osmolality 269, calcium 8.1. Liver functions continue to show elevated AST at 55 with being able. ALT and alkaline phosphatase are within normal limits. MICROBIOLOGY: Blood cultures remain negative after 3 days. RADIOLOGY: Repeat chest x-ray this morning per radiologic interpretation showed unchanged chest radiograph with no focal pneumonia on the single view. ASSESSMENT: 1. Bilateral lower lobe pneumonia, community acquired, having responded well to initiation of parenteral antibiotics, continues to improve. 2. Hyponatremia, exacerbated by #1, now normalized after fluids and diuresis with Lasix. This was probably contributing to some of her generalized weakness , which is improving. 3. Elevated AST, uncertain etiology, although stable. 4. Abdominal wall pain, felt to be secondary to postherpetic neuralgia as she has had shingles within the last six months. We will start her on some topical treatment and monitor. 5. Generalized weakness with some mild mental status changes, probably due to effect of medications with combination of Trileptal and gabapentin with the patient being noncompliant with medication regimen. 6. Chronic peripheral neuropathies. PLAN: At this point, her sodium has normalized. We will start to saline lock her as she starts taking adequate fluids. We will continue antibiotic treatment with Rocephin and azithromycin as appropriate. There has been a discussion now of sending her to [facility] in [place] and Terence has started this discussion. Hopefully, this will guerrero out and we can discharge tomorrow. I did talk with Dr. Cramer and he is in agreement with trying the lidocaine for the abdominal wall pain as she is already on Trileptal as well. Dr. Cramer is aware of the Trileptal and we will start her on some lidocaine patches for the neuralgia. After further discussing with the family and looking at her home medications, apparently she was supposed to stop taking gabapentin at least for 3 to 4 days before she started taking Trileptal, which she never did. She basically went from taking gabapentin one morning to taking Trileptal in the afternoon, which probably contributed to some of her underlying weakness and mild confusion. I have also held her Ditropan which possibly could be contributing to some of this. Again, we will hopefully be able to discharge tomorrow once arrangements are made. We will need to touch base with Dr. Cramer with regard to the Trileptal, lidocaine and resuming the Ditropan. She will need followup with Dr. Cramer shortly after discharge. Until discharge, we will continue to monitor the patient closely and treat as needed. #[id number] [facility]
[2018-02-13] MEDS ORDERED: SODIUM CHLORIDE 0.9% 250ML 250 ML ONE (17:01)
[2018-02-13] MEDS ORDERED: AZITHROMYCIN IV 500 MG VIAL IVPB ONE (17:03)
[2018-02-13] MEDS: AZITHROMYCIN IV 500 MG in SODIUM CHLORIDE 0.9% 250ML 250 ML IVPB SCH (18:25)
[2018-02-13] MEDS: ONDANSETRON INJ 4 MG/2 ML VIAL IV PRN (20:44)
[2018-02-13] MEDS ORDERED: REMOVE OLD PATCH TOP SCH (21:00)
[2018-02-13] MEDS: ENOXAPARIN SODIUM 40 MG/0.4 ML SYG SUBCU SCH (21:27)
[2018-02-13] MEDS: ATORVASTATIN 20 MG TAB PO SCH (21:27)
[2018-02-13] MEDS: MELOXICAM 7.5 MG TAB PO SCH (21:28)
[2018-02-13] MEDS: MEMANTINE HCL DONEPEZIL HCL PO SCH (21:29)
[2018-02-14] MEDS: KCL 20 MEQ/NS 1,000 ML IVS PRN (06:15)
[2018-02-14] MEDS: PANTOPRAZOLE SODIUM TAB 40 MG PO SCH (06:32)
[2018-02-14] MEDS: RALOXIFENE HCL 60 MG PO SCH (09:11)
[2018-02-14] MEDS: LIDOCAINE 5% TOP SCH (09:11)
[2018-02-14] MEDS: RAMIPRIL 5 MG CAP PO SCH (09:12)
[2018-02-14] MEDS: OXcarbazepine 300 MG TAB PO SCH ×2 (09:12→14:45)
[2018-02-14] MEDS: FENOFIBRIC ACID 135 MG CAP PO SCH (09:12)
[2018-02-14] MEDS: SODIUM CHLORIDE 0.9% (FLUSH) 10 ML SYG IV SCH (09:13)
[2018-02-14] MEDS: FUROSEMIDE INJ 20 MG/2 ML VIAL IV SCH (09:15)
[2018-02-14] MEDS: ESCITALOPRAM 10 MG TAB PO SCH (09:15)
[2018-02-14] MEDS: LEVALBUTEROL NEBS 1.25 MG/3 ML VIAL INH SCH ×3 (09:30→17:31)
[2018-02-14] MEDS ORDERED: SODIUM CHL 0.9% 50ML MIN-BAG+ 50 ML IVPB ONE (14:28)
[2018-02-14] MEDS ORDERED: cefTRIAXone SODIUM 1 GM VIAL ONE (14:28)
[2018-02-14 14:34] VITALS: BP 151/84; TEMP 97.9; O2SAT 95
[2018-02-14] MEDS: cefTRIAXone SODIUM 1 GM in SODIUM CHL 0.9% 50ML MIN-BAG+ 50 ML IVPB SCH (14:44)
--- NOTE | 2018-02-15 08:11 | DS ---
SUPERVISING PHYSICIAN: Tyree Sainz MD DISCHARGE DIAGNOSIS: 1. Bilateral lower lobe pneumonia, community acquired, having responded well to initiation of parenteral antibiotics. 2. Hyponatremia, exacerbated by #1, now normalized after fluids and diuresis with Lasix. This may have contributing to some of her generalized weakness, which is improving. 3. Elevated AST, uncertain etiology, although stable. 4. Abdominal wall pain, felt to be secondary to postherpetic neuralgia as she has had shingles within the last six months. We will start her on some topical treatment and monitor. 5. Generalized weakness with some mild mental status changes, probably due to effect of medications with combination of Trileptal and gabapentin with the patient being noncompliant with medication regimen. 6. Chronic peripheral neuropathies. HISTORY OF PRESENT ILLNESS: This is an 82-year-old female patient who presented to the Emergency Room after she had some extreme weakness at her home. She normally can use a walker to get around with some minimal assistance by her or caregivers, but three to four days prior to her admission, she became much weaker and required full assistance. She actually has had two to three falls in the last few days prior to her admission. EMS was actually called out to her house several times to help get her up off the floor, but she did not come to the Emergency Room. On the date of admission, she was trying to get to the bathroom and fell. She was incontinent of stool and she was brought to the hospital. Initially, her vital signs initially showed her O2 sat was 90% on room air. She had a temperature of 99.5 with a heart rate of 70 , blood pressure 193/88 with respiratory rate 24. Laboratory findings showed sodium 129, potassium 4.8, chloride 94, carbon dioxide 30, anion gap 9.8, BUN 20 , creatinine 0.9, glucose 94, serum osmolality 261.3, AST 47 and serum total protein 5.6. Troponin was 0.02. White count of 5.7, hemoglobin 12.3, hematocrit 37.9. Urinalysis was basically within normal limits. Chest x-ray showed cardiomegaly with mild basilar atelectasis versus pneumonia. She received some Rocephin in the Emergency Room and she was admitted to the Medical /Surgical Floor. HOSPITAL COURSE: Over the next several days, she was placed on fluid restrictions as well as given some Zithromax and Rocephin for her pneumonia. At some point, she actually was found to be taking Trileptal and gabapentin at the same time. She was supposed to have discontinued her Neurontin prior to starting the Trileptal which may have contributed to her extreme weakness. The gabapentin was discontinued. Initially it was planned that she go to [facility] rehab facility in [place] for strengthening and conditioning. She received several doses of Lasix to help correct her sodium levels. Her insurance company, [employer], did not approve her admission to [facility] rehab facility. 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 Her WBC normalized to 7.3 with stable hemoglobin and hematocrit of 11.5 and 34.8. Her sodium finally improved to 135 with chloride still being slightly low at 99, potassium 4.3. BUN 14 and creatinine 0.74, stable. AST continued to be slightly elevated, but was stable between 52 and 55. Her final blood culture showed no growth after five days. Her last chest x-ray showed no focal pneumonia on the single view. The family decided she would be discharged to [facility] in [place]. DISCHARGE PLAN: The patient will be discharged to [facility] in [place], [place]. She is to resume her previous diet and activity is to be per physical therapy. She is to continue on her previous medications with the exception of her gabapentin. I have also ordered some Lidoderm patches. She has completed her antibiotics. When she returns to [place], she can followup with Dr. Cramer after discharge from [facility]. DISCHARGE MEDICATIONS: 1. Evista. 2. Lipitor. 3. Altace. 4. Centrum Silver. 5. TriCor. 6. Low dose aspirin. 7. Lasix. 8. Trileptal. 9. Calcium carbonate. 10. Oxybutynin. 11. Meloxicam. 12. Lexapro. 13. Senokot. 14. Zofran. 15. Dulcolax suppository. 16. Diclofenac gel. 17. Tylenol. 18. Calamine lotion. 19. Namzaric. 20. Potassium citrate. 21. Lidoderm patch. #[id number] [facility]
== END 2018-02-14 17:40 | DRG 194 ==
LOC: ER 12:36 → OBSVTOIN 15:56 → MS 15:56
PROVIDERS: ADMIT Nurse Practitioner Acute Care; ATTEND Nurse Practitioner Acute Care
DX: J18.9 Pneumonia, unspecified organism (principal); E87.1 Hypo-osmolality and hyponatremia; B02.29 Other postherpetic nervous system involvement; G62.9 Polyneuropathy, unspecified; R29.6 Repeated falls; R10.9 Unspecified abdominal pain; E78.5 Hyperlipidemia, unspecified; E86.0 Dehydration; G89.29 Other chronic pain; Z91.81 History of falling; M54.16 Radiculopathy, lumbar region; Z91.14 Patient's other noncompliance with medication regimen; Z88.8 Allergy status to other drugs, medicaments and biological substances; R41.82 Altered mental status, unspecified; T42.1X1A Poisoning by iminostilbenes, accidental (unintentional), initial encounter; T42.6X1A Poisoning by other antiepileptic and sedative-hypnotic drugs, accidental (unintentional), initial encounter

== ENCOUNTER → 2018-05-01 | Outpatient (CLI) | payer OTHER | LOC: YCHH 16:03 | PROVIDERS: ATTEND Family Medicine | DX: I10 Essential (primary) hypertension (principal); M62.81 Muscle weakness (generalized) ==

== ENCOUNTER 2018-05-02 15:23 | Inpatient (IN) | payer OTHER ==
--- NOTE | 2018-05-02 16:38 | ED.PDOC ---
History of Present Illness - General Chief Complaint: General Stated Complaint: Weakness Time Seen by Provider: 05/02/18 16:15 Source: patient, family, old records - FAX OF PCP'S RECENT H&P REVIEWED. Exam Limitations: other - DEMENTIA - History of Present Illness Initial Comments: THE PATIENT REPORTS SHE JUST FEELS GENERALLY FATIGUED AND WEAK ALL OVER. NO FOCAL OR ACUTE DEFICITS. PER HER , SHE HAS HAD LONG-STANDING WEAKNESS AND FATIGUE FOR SEVERAL MONTHS WHICH JUST ISN'T GETTING BETTER. SHE HAS BEEN IN REHAB CENTERS RECENTLY ( AND PT UNCERTAIN OF THE ETX BUT THEY THINK FOR GEN WEAKNESS AND DECONDITIONING). PT IS NOW BACK AT HER OWN HOME WITH . HOME HEALTH VISITED TODAY AND NOTICED SHE IS MORE FATIGUED THAN NL THUS DIRECTED HER TO THE ER. PT DENIES CP, SOB, FOCAL WEAKNESS OR DEFICITS. Timing/Duration: other - SEVERAL WEEKS Severity: moderate Improving Factors: nothing Worsening Factors: nothing Associated Symptoms: denies symptoms Allergies/Adverse Reactions: Allergies Ciprofloxacin [From Cipro] Allergy (Verified 05/02/18 15:46) Naproxen [From Aleve] Allergy (Verified 05/02/18 15:46) Home Medications: Ambulatory Orders Aspirin [Aspirin Adult Low Dose] 81 mg PO DAILY 07/18/15 Atorvastatin Calcium [Lipitor] 20 mg PO BEDTIME 07/18/15 Fenofibrate [Tricor] 145 mg PO DAILY 07/18/15 Multiple Vitamins W/ Minerals [Centrum Silver] 1 tab PO DAILY 07/18/15 Raloxifene HCl [Evista] 60 mg PO DAILY 07/18/15 Ramipril [Altace] 5 mg PO DAILY 07/18/15 Furosemide [Lasix] 20 mg PO DAILY PRN 12/26/15 Diclofenac Sodium (Topical) [Diclofenac Sodium] 1 % TD TID PRN 02/09/18 Meloxicam [Mobic] 15 mg PO BEDTIME 02/09/18 Ondansetron HCl [Zofran] 4 mg PO Q6HR PRN 02/09/18 Oxcarbazepine [Trileptal] 150 mg PO BID 02/09/18 Oxybutynin Chloride 10 mg PO BEDTIME 02/09/18 Lidocaine 5% Patch [Lidoderm Patch] 5 % TOP DAILY 02/13/18 Calcium Carbonate-Cholecalcife [Calcium + D] 1 tab PO DAILY 05/02/18 Gabapentin 300 mg PO TID 05/02/18 Memantine HCl-Donepezil HCl [Namzaric 28-10 mg] 1 cap PO BEDTIME 05/02/18 Potassium Chloride [Micro-K] 10 meq PO DAILY 05/02/18 Review of Systems - Review of Systems Constitutional: States: weakness. Denies: chills, diaphoresis, fever EENTM: Denies: ear pain, nose congestion, throat pain Respiratory: Denies: cough, short of breath Cardiology: Denies: chest pain, palpitations Gastrointestinal/Abdominal: Denies: abdominal pain, nausea Genitourinary: Denies: dysuria, frequency Musculoskeletal: States: no symptoms reported Skin: States: no symptoms reported Neurological: States: weakness. Denies: headache, paresthesia Endocrine: States: no symptoms reported Hematologic/Lymphatic: States: no symptoms reported Unable to Obtain Due To: other - PT IS A WEAK HISTORIAN AND TAKES MED FOR DEMENTIA BUT WAS OX4 AND ANSWERED Q'S AND MY ROS CLEARLY. All other Systems: Reviewed and Negative Past Medical History (General) - Patient Medical History Hx Seizures: No Hx Stroke: No Hx Asthma: No Hx of COPD: No Hx Cardiac Disorders: Yes - Hypercholesterolemia Hx Congestive Heart Failure: No Hx Pacemaker: No Hx Hypertension: Yes Hx Diabetes: No Hx MRSA: No Surgical History: Hysterectomy - Vaccination History Hx Tetanus, Diphtheria Vaccination: No Hx Influenza Vaccination: Yes - 2018 Hx Pneumococcal Vaccination: Yes - Social History Hx Tobacco Use: No Hx Alcohol Use: No Hx Substance Use: No Hx Physical Abuse: No Hx Emotional Abuse: No - Female History Patient : No Family Medical History - Family History Mother Family History: Unknown Living Status: Father Living Status: Cause of : CT Physical Exam - Physical Exam General Appearance: Alert, No apparent distress Eye Exam: bilateral normal Ears, Nose, Throat: hearing grossly normal, normal ENT inspection, normal pharynx Neck: non-tender, full range of motion, supple, other - NO JVD. NO BRUIT. Respiratory: lungs clear, normal breath sounds, no respiratory distress Cardiovascular/Chest: regular rate, rhythm, no edema, no murmur Peripheral Pulses: radial,right: 1+, radial,left: 1+, dorsalis pedis,right: 1+, dorsalis pedis,left: 1+, posterior tibialis,right: 1+, posterior tibialis,left: 1+ Gastrointestinal/Abdominal: normal bowel sounds, non tender, soft, no organomegaly, no pulsatile mass Rectal Exam: deferred Back Exam: no CVA tenderness, no vertebral tenderness Extremity: normal range of motion, non-tender, normal inspection, no pedal edema Neurologic: pharmacist intern II-XII nml as tested, no motor/sensory deficits - MOTOR 5/5 AND SYMMETRICAL AND BUE AND BLE. , alert, oriented x 3, other - NO NEUROLOGICAL DEFICITS. NO DYSARTHRIA; SPEECH CLEAR. Skin Exam: normal color, warm/dry Lymphatic: no adenopathy Progress - Progress Progress: 05/02/18 18:34 H/O CHF BUT NO EVIDENCE OF ACUTE HF TODAY (NO JVD, NO BLE EDEMA, NO PLEURAL EFFUSIONS ON CXR), AND PT IN ARF WITH ACUTELY ELEVATED CR AND BUN. THUS SHE IS DEHYDRATED AND IN NEED IF IVF RESUSCITATION. 500 ML BOLUS NS GIVEN (INSTEAD OF 1 L) WITH HER H/O CHF. CR 2.24 (WAS 1.95 YESTERDAY AND BASELINE 0.74. BUN 75 (BASELINE 15) HGB 9.7 (BASELINE 11.5 - 12.5) MCV ELEVATED AND MCHC LOW, THUS MACROCYTIC HYPOCHROMIC, THUS CHECKING FOLATE, B12, AND IRON STUDIES WITH THE ACUTE DROP IN HGB. SHE NEEDS ADMISSION FOR HER ARF, DEHYDRATION, AND ANEMIA, ALL OF WHICH CAN CONTRIBUTE TO HER GENERALIZED WEAKNESS. I SPOKE WITH KVNG DUDLEY, HOSPITALIST CARROT GRADER INSPECTOR, WHO ACCEPTED ADMISSION AND FURTHER CARE. THANK YOU VERY MUCH, KVNG AND [facility], FOR ACCEPTING CARE OF THIS PT. Departure - Departure Clinical Impression: Dehydration, Acute prerenal azotemia, Generalized weakness, Macrocytic anemia, Hypochromic anemia Acute renal failure Qualifiers: Acute renal failure type: unspecified Qualified Code(s): N17.9 - Acute kidney failure, unspecified Anemia Qualifiers: Anemia type: unspecified type Qualified Code(s): D64.9 - Anemia, unspecified Disposition: Admit Patient Condition: Fair Departure Forms: Patient Portal Self Enrollment Referrals: ANASTACIO HUBBARD MD [Primary Care Provider] - 1-2 Weeks Home Medications: Ambulatory Orders Aspirin [Aspirin Adult Low Dose] 81 mg PO DAILY 07/18/15 Atorvastatin Calcium [Lipitor] 20 mg PO BEDTIME 07/18/15 Fenofibrate [Tricor] 145 mg PO DAILY 07/18/15 Multiple Vitamins W/ Minerals [Centrum Silver] 1 tab PO DAILY 07/18/15 Raloxifene HCl [Evista] 60 mg PO DAILY 07/18/15 Ramipril [Altace] 5 mg PO DAILY 07/18/15 Furosemide [Lasix] 20 mg PO DAILY PRN 12/26/15 Diclofenac Sodium (Topical) [Diclofenac Sodium] 1 % TD TID PRN 02/09/18 Meloxicam [Mobic] 15 mg PO BEDTIME 02/09/18 Ondansetron HCl [Zofran] 4 mg PO Q6HR PRN 02/09/18 Oxcarbazepine [Trileptal] 150 mg PO BID 02/09/18 Oxybutynin Chloride 10 mg PO BEDTIME 02/09/18 Lidocaine 5% Patch [Lidoderm Patch] 5 % TOP DAILY 02/13/18 Calcium Carbonate-Cholecalcife [Calcium + D] 1 tab PO DAILY 05/02/18 Gabapentin 300 mg PO TID 05/02/18 Memantine HCl-Donepezil HCl [Namzaric 28-10 mg] 1 cap PO BEDTIME 05/02/18 Potassium Chloride [Micro-K] 10 meq PO DAILY 05/02/18 Decision To Admit - Decistion To Admit Decision to Admit Reason: Admit from ER Decision to Admit Date: 05/02/18 Decision to Admit Time: 19:02
--- NOTE | 2018-05-02 16:53 | RAD ---
EXAM DESCRIPTION: Chest,1 View CLINICAL HISTORY: 82 years Female, GENERALIZED WEAKNESS COMPARISON: 02/13/2018 IMPRESSION: The patient is rotated, which somewhat limits evaluation. The heart is enlarged, without failure. Elevation of the right hemidiaphragm with right basilar atelectasis again demonstrated. No confluent airspace consolidation, pleural effusion, or pneumothorax. No acute osseous abnormality. Stimulator leads projecting over the lower thoracic spine again demonstrated. Electronically signed by: Mehdi Arteaga MD 05/02/2018 4:52 PM [facility]
[2018-05-02] MEDS ORDERED: SODIUM CHLORIDE 0.9% 500ML 500 ML IVS ONE (18:37)
--- NOTE | 2018-05-02 19:32 | HP ---
SUPERVISING PHYSICIAN: Rubin Tavares M.D. CHIEF COMPLAINT: Generalized weakness. HISTORY OF PRESENT ILLNESS: This is an 82 year-old female who came to the Emergency Room with increased generalized weakness. Apparently she always has a baseline weakness, however it was significantly worsen than normal. She does not have any focal deficits or anything acute, however, gradually she has become more weak. She uses a wheelchair on a regular basis anyway and has home health with physical therapy who comes to see her at home. According to the records, she saw Dr. Cramer back on the 11 of April and at that time had increased swelling. So at that point she was placed on Lasix and potassium. 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 She was supposed to have a followup appointment the day after New Year's but since it was cold did not make that appointment. She had some labs done by [facility] which showed an elevated creatinine yesterday and today came to the E. R. with those symptoms. Her labs showed a creatinine of 2.24 in the E. R. Elevated BUN was 75. She did not have a white count. Hemoglobin was 9.7 and platelet count was 184. Urinalysis was not consistent with any kind of urinary tract infection. Chest x-ray was actually clear. According to the notes from Dr. Cramer's office she is supposed to have an echocardiogram this month but has not had one yet. In the E. R. she as given a 500 mL normal saline bolus and I was called for admission due to the profound weakness as well as acute kidney injury. At time of examination the patient was awake and alert, but goes to sleep quite easily. Her daughter is at the bedside and states that she has been very sleepy and sleeping a lot lately. 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 PAST MEDICAL HISTORY: 1. Hyperlipidemia. 2. Chronic low back pain. 3. Depression. 4. Dizziness and vertigo. 5. Hypertension. 6. Lumbar radiculopathy. 7. Herpes zoster. PAST SURGICAL HISTORY: 1. Hysterectomy. 2. Left foot surgery. 3. Pain pump stimulator. CURRENT MEDICATIONS: 1. Zofran 4 mg every 6 hours p.r.n. for nausea and vomiting. 2. Centrum Silver 1 tab daily. 3. Fluoxetine 60 mg p.o. in the morning. 4. Trileptal 150 mg p.o. t.i.d. 5. Calcium carbonate 600 mg p.o. every day. 6. Tricor 145 mg p.o. daily. 7. Aspirin 81 mg p.o. daily. 8. Calamine external topical to affected areas p.r.n. for itching. 9. Senokot S 2 tabs p.o. b.i.d. p.r.n. for constipation. 10. Mobic 15 mg every h.s. 11. Atorvastatin 20 mg p.o. every day 12. Namzaric 28/10 p.o. every h.s. 13. Oxybutynin 5 mg 2 tabs p.o. every h.s. 14. Lexapro 10 mg p.o. daily. 15. Ramipril 5 mg daily. 16. Tylenol 500 mg 2 tabs p.o. t.i.d. p.r.n. 17. Advil 200 mg 2 tabs p.o. every 8 hours p.r.n. 18. Gabapentin, according to Dr. Cramer's note, is 300 mg p.o. t.i.d. ALLERGIES: ALEVE, CIPRO, AMITRIPTYLINE AND TRINTELLIX. FAMILY HISTORY: Father of myocardial infarction. Mother of a ruptured appendix. SOCIAL HISTORY: Nondrinker and nonsmoker. No illicit drugs. She is and disabled secondary to generalized weakness. REVIEW OF SYSTEMS: CONSTITUTIONAL: No fever or chills. No recent weight loss or weight gain. Positive for malaise. HEENT: No headaches, vision changes, ear pain, nasal congestion or throat pain. RESPIRATORY: No cough, hemoptysis or pleuritic chest pain. CARDIOVASCULAR: No chest pain, palpitations or peripheral edema. GASTROINTESTINAL: No nausea, vomiting, diarrhea, constipation or abdominal pain. GENITOURINARY: No dysuria, frequency or flank pain. HEMATOLOGIC: Positive for easy bruising but no transfusion reaction. MUSCULOSKELETAL: Positive for low back pain. No joint pain or joint swelling. NEUROLOGIC: No seizures, paresthesias or syncope, but she does have some dizziness and weakness. ENDOCRINE: No polydipsia, polyuria or polyphagia. No heat or cold intolerance. INTEGUMENT: No rashes, lesions or wounds. PHYSICAL EXAMINATION: VITAL SIGNS: Blood pressure 117/54, heart rate 75, respiratory rate 18, temperature 97.1, oxygen saturation 100%. GENERAL: Ms. Ewing is an 82 year-old female who is chronically ill in appearance but in no distress at this time. HEENT: Head is normocephalic and atraumatic. Eyes: Pupils are equal and reactive. Nose: No drainage. Throat: Dry mucosa. NECK: Supple. Midline trachea. No jugular venous distention. CHEST: Symmetrical with equal rise and fall of the chest with inspiration and expiration. Clear to auscultation bilaterally. CARDIOVASCULAR: Regular rate and rhythm. Normal S1 and S2. ABDOMEN: Soft. Positive bowel sounds. No tenderness to palpation or organomegaly. GENITOURINARY: Exam is deferred. EXTREMITIES: Lower extremities with no edema, 2+ pulses. Capillary refill is less than 2 seconds. NEUROLOGIC: The patient is alert. She knows where she is. She knows her family around her. There are no focal deficits. LABORATORY: White count 4.5, hemoglobin 9.7, hematocrit 29.4, platelet count 184. Sodium 138, potassium 5.0, chloride 101, carbon dioxide 31, BUN 35, creatinine 2.24, glucose 91, calcium 8.4. Bilirubin 0.6, albumin 3.1. Urinalysis with no urinary tract infection. Chest x-ray with cardiomegaly but otherwise there are no acute cardiopulmonary findings. ASSESSMENT: 1. Acute kidney injury secondary to severe dehydration. 2. Generalized weakness, acute on chronic. 3. Anemia. 4. 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 5. Hypertension which is currently controlled. 6. Chronic dementia. PLAN: At this time she is going to be admitted for fluid resuscitation. She is 82 years old and I am not really sure of her cardiac function, so this is going to be done very conservatively. Additionally she has some generalized weakness so we will order physical therapy. She participates in physical therapy via home health already. I have ordered DVT prophylaxis with 30 mg of Lovenox as well as GI ulcer prophylaxis with Omeprazole. I will review her home medications and continue those if they are not contributing to her dehydration which by the look of it none of those are. I do not see the Lasix listed. Recheck her labs in the morning. I would imagine that she is becoming a little bit difficult to manage at home given her profound weakness and need for use of a wheelchair on a regular basis. My concern is that she needs more of a cutter finisher solution. I am not sure the family would be open for that discussion, but it is a consideration. #[id number] [facility]
[2018-05-02] MEDS ORDERED: SODIUM CHLORIDE 0.9% (FLUSH) 10 ML SYG IV PRN (20:40)
[2018-05-02] MEDS ORDERED: DEX 5% W/NACL 0.45% 1000ML 1,000 ML IVS PRN (20:43)
[2018-05-02] MEDS ORDERED: IV SET AND CAP CHANGE INJ INJ SCH (21:00)
[2018-05-02] MEDS ORDERED: DEX 5% W/NACL 0.45% 1000ML 1,000 ML IVS ONE (21:12)
[2018-05-02] MEDS: ENOXAPARIN SODIUM 30 MG/0.3 ML SYG SUBCU SCH (21:18)
[2018-05-02] MEDS ORDERED: ONDANSETRON 4 MG TAB PO PRN (22:33)
[2018-05-02] MEDS ORDERED: CALAMINE EX PRN (22:33)
[2018-05-02] MEDS ORDERED: ACETAMINOPHEN 500 MG TAB PO PRN (22:33)
[2018-05-02] MEDS ORDERED: SENNA/DOCUSATE TAB 1 EA TAB PO PRN (22:33)
[2018-05-03] MEDS: OMEPRAZOLE CAP 20 MG CAP PO SCH (06:09)
[2018-05-03] MEDS ORDERED: OXcarbazepine 300 MG TAB PO ONE (08:40)
[2018-05-03] MEDS ORDERED: NON-FORMULARY MEDICATION 1 EA MIS (Oxcarbazepine [Trileptal] 150 MG) PO SCH (09:00)
[2018-05-03] MEDS ORDERED: ATORVASTATIN 20 MG TAB PO SCH (09:00)
[2018-05-03] MEDS: GABAPENTIN 100 MG CAP PO SCH ×3 (09:16→21:07)
[2018-05-03] MEDS: RAMIPRIL 5 MG CAP PO SCH (09:16)
[2018-05-03] MEDS: ESCITALOPRAM 10 MG TAB PO SCH (09:17)
[2018-05-03] MEDS: ASPIRIN (ENTERIC COATED) 81 MG TAB PO SCH (09:17)
[2018-05-03] MEDS: CALCIUM CARBONATE-VITAMIN D 500 MG TAB PO SCH (10:39)
[2018-05-03] MEDS: MULTIPLE VITAMINS W/ MINERALS 1 EA TAB PO SCH (10:39)
--- NOTE | 2018-05-03 13:22 | PN ---
SUPERVISING PHYSICIAN: Rubin Tavares MD DATE: 05/03/18 SUBJECTIVE: The patient is sitting in her bed. Her daughter is at her bedside. Her daughter was concerned that the patient gets confused at night until oxygen is placed on her. She was confused last night because she thought someone was stealing things from her and once they put her oxygen on her, her daughter states she was not confused. She has noticed this happening several times in the past. She has had no complaints of nausea or vomiting and has been taking her p.o. fluids without any problems. They also discussed with Cony Quintana, Briquette Operator, about her discharge plan, whether she is going to go home or go to [facility]. OBJECTIVE: VITAL SIGNS: T-max 24 hours 99. Pulse 72. Blood pressure 108/65. Respiratory rate 18. O2 saturation 97% on 2 liters. RESPIRATORY: Essentially clear to auscultation bilaterally. CARDIAC: Regular rate and rhythm. GASTROINTESTINAL: Abdomen is soft, nondistended, nontender. Bowel sounds are positive. NEUROLOGIC: Awake, alert and oriented times three. LABORATORY: WBCs 3.4, hemoglobin 9.4, hematocrit 28.2. Electrolytes are basically within normal limits with the exception that her calcium is slightly low at 7.9. BUN 66. Creatinine has improved to 1.66. All other labs and films have been reviewed via the EMR. ASSESSMENT: 1. Acute kidney injury secondary to severe dehydration, improving. Her admitting creatinine was 3.66. Baseline creatinine is 0.7. 2. Generalized weakness, acute on chronic. 3. Anemia. 4. 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 5. Hypertension, currently controlled. 6. Chronic dementia. PLAN: We will continue present supportive care. I have ordered repeat lab for in the morning. Her baseline creatinine is about 0.9. It is 1.6 today. I have also discontinued her IV fluids as she is taking p.o. fluids without any problems. The patient and her family are still deciding where she will need to be discharged. If she is discharged home, she has [facility], but she will need an aid 3 times a week until they can decide whether she will be in assisted living or long-term care facility. I have also ordered an ambulation study for O2 qualification. She may be getting confused at night due to her hypoxia. She will also need a sleep study after discharge. We will continue to monitor the patient closely and follow as needed. Dr. Tavares is the collaborating physician and available for consultation. #[id number] [facility]
[2018-05-03] MEDS: OXcarbazepine 300 MG TAB PO SCH ×2 (15:07→21:09)
[2018-05-03] MEDS: OXYBUTYNIN CL 5 MG TAB PO SCH (21:07)
[2018-05-03] MEDS: MELOXICAM 7.5 MG TAB PO SCH (21:08)
[2018-05-03] MEDS: ENOXAPARIN SODIUM 30 MG/0.3 ML SYG SUBCU SCH (21:09)
[2018-05-03] MEDS: MEMANTINE HCL DONEPEZIL HCL PO SCH (21:10)
[2018-05-04] MEDS: OMEPRAZOLE CAP 20 MG CAP PO SCH (06:01)
[2018-05-04] MEDS: MULTIPLE VITAMINS W/ MINERALS 1 EA TAB PO SCH (09:24)
[2018-05-04] MEDS: OXcarbazepine 300 MG TAB PO SCH ×3 (09:24→20:48)
[2018-05-04] MEDS: ESCITALOPRAM 10 MG TAB PO SCH (09:24)
[2018-05-04] MEDS: FENOFIBRIC ACID 135 MG CAP PO SCH (09:25)
[2018-05-04] MEDS: ASPIRIN (ENTERIC COATED) 81 MG TAB PO SCH (09:25)
[2018-05-04] MEDS: RAMIPRIL 5 MG CAP PO SCH (09:25)
[2018-05-04] MEDS: CALCIUM CARBONATE-VITAMIN D 500 MG TAB PO SCH (09:25)
[2018-05-04] MEDS: GABAPENTIN 100 MG CAP PO SCH ×3 (09:25→20:48)
[2018-05-04] MEDS ORDERED: LEVALBUTEROL NEBS 1.25 MG/3 ML VIAL NEB PRN (15:27)
--- NOTE | 2018-05-04 17:29 | PN ---
DATE: 05/04/18 SUPERVISING PHYSICIAN: Rubin Tavares M.D. SUBJECTIVE: The patient is sitting up in her bed. Her son and [id number] are at the bedside. We discussed her discharge planning to go to assisted living but they have not decided where she will go. She gets very short of breath with any exertion and has a difficult time with her daily tasks, but with assistance she does fairly well. She did have any oxygen qualification admission study today. She notes at this time that she will have oxygen at her home. She denies any chest pain, nausea, vomiting or diarrhea. OBJECTIVE: VITAL SIGNS: Temperature 97.6, heart rate 78, blood pressure 143/72, respiratory rate 18, O2 sat 93% on 2 liters nasal cannula. RESPIRATORY: Essentially clear to auscultation bilaterally, somewhat diminished at the bases. CARDIAC: Regular rate and rhythm. GASTROINTESTINAL: Abdomen is soft, nondistended, non-tender. Bowel sounds are positive. EXTREMITIES: No clubbing, cyanosis or edema. NEUROLOGIC: She is awake, alert and oriented times three. LABORATORY: WBCs are 3.7 with hemoglobin 9.3, hematocrit 28.2. Sodium 138, potassium 5.1, chloride 103, carbon dioxide 32, BUN 46, creatinine 1.35 which has improved from yesterday at 1.66. Ambulation studies show that she had dropped to 74% on room air while exercising. When she was sitting down after her exercise study her oxygenation went up to 92%. All other labs and films have been reviewed via the EMR. ASSESSMENT: 1. Acute kidney injury secondary to severe dehydration, improving. Her admitting creatinine was 3.66. Baseline creatinine is 0.7. 2. Generalized weakness, acute on chronic. 3. Chronic bronchiectasis with frequent hospitalizations for pneumonia. She does become hypoxic with any exertion and on room air. 4. Anemia. 5. 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 6. Hypertension, currently controlled. 7. Chronic dementia. PLAN: We will continue present supportive care. I have ordered oxygen for her to have at home chronically. The family is still deciding if she will go home or if she is going to an assisted living. She does have [facility] and she will need an aide at least 3 times a week if she does not go to the assisted living facility. She also may benefit for a sleep study after discharge. She will need close follow with her primary care physician, Dr. Cramer. Will continue to monitor closely and follow as needed. Dr. Tavares is the collaborating physician available for consultation. #[id number] [facility]
[2018-05-04] MEDS: OXYBUTYNIN CL 5 MG TAB PO SCH (20:47)
[2018-05-04] MEDS: ENOXAPARIN SODIUM 30 MG/0.3 ML SYG SUBCU SCH (20:47)
[2018-05-04] MEDS: MELOXICAM 7.5 MG TAB PO SCH (20:49)
[2018-05-04] MEDS: MEMANTINE HCL DONEPEZIL HCL PO SCH (20:50)
[2018-05-04] MEDS ORDERED: ATORVASTATIN 20 MG TAB PO SCH (21:00)
[2018-05-05] MEDS: ASPIRIN (ENTERIC COATED) 81 MG TAB PO SCH (08:46)
[2018-05-05] MEDS: FENOFIBRIC ACID 135 MG CAP PO SCH (08:46)
[2018-05-05] MEDS: OXcarbazepine 300 MG TAB PO SCH (08:46)
[2018-05-05] MEDS: RAMIPRIL 5 MG CAP PO SCH (08:46)
[2018-05-05] MEDS: GABAPENTIN 100 MG CAP PO SCH (08:46)
[2018-05-05] MEDS: MULTIPLE VITAMINS W/ MINERALS 1 EA TAB PO SCH (08:46)
[2018-05-05] MEDS: ESCITALOPRAM 10 MG TAB PO SCH (08:47)
[2018-05-05] MEDS: CALCIUM CARBONATE-VITAMIN D 500 MG TAB PO SCH (08:49)
[2018-05-05 14:12] VITALS: BP 110/60; TEMP 97.8; O2SAT 96
--- NOTE | 2018-05-06 14:53 | DS ---
SUPERVISING PHYSICIAN: Rubin Tavares MD DISCHARGE DIAGNOSIS: 1. Acute kidney injury secondary to severe dehydration, improving. Her admitting creatinine was 3.66. Baseline creatinine is 0.7. Today's creatinine is 1.17. 2. Generalized weakness, acute on chronic. 3. Chronic bronchiectasis with frequent hospitalizations for pneumonia. She does become hypoxic with any exertion and on room air. 4. Anemia. 5. 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 6. Hypertension, currently controlled. 7. Chronic dementia. HISTORY OF PRESENT ILLNESS: This is an 82 year-old female patient who came to the Emergency Room with generalized weakness that had worsened over the previous few days. She has baseline weakness but it was significantly worse than normal. She had no focal deficits. She generally uses a wheelchair on a regular basis anyway and has home health with physical therapy who come to see her at home. She saw Dr. Cramer on the 01 of April and at that time had some swelling. She was placed on Lasix and potassium. 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 She was unable to make her followup appointment and Home Health did some labs that showed an elevated creatinine on the day prior to admission to the Emergency Room. Her creatinine was 2.24 in the Emergency Room. Her BUN was 75. Her white count was normal and hemoglobin was 9.7 and platelet count was 184,000. Urinalysis was not consistent with any kind of urinary tract infection. Chest x-ray was clear. She was given 500 mL normal saline bolus in the Emergency Room and she was admitted to the hospital for extreme weakness as well as acute kidney injury. HOSPITAL COURSE: The patient was given fluids and the next day her creatinine came down to 1.66. She was evaluated by physical therapy and found to be very weak. Initially we tried to get a referral for assisted living but her insurance did not qualify her for that. It was also found that one night she became very confused, oxygen was placed on the patient and her confusion resolved. An ambulatory study was done the following day and she dropped to 74% with exertion. After placing a bag of oxygen at 2 liters she rebounded to the low 90s. She was also given some Xopenex which has minimal affect on her breathing. Her vital signs remained stable, especially with oxygen. Her 02 saturations stayed in the mid 90s. Today, her electrolytes are basically within normal limits. Her creatinine is at 1.17, her baseline creatinine is about 0.7. Hemoglobin and hematocrit remained stable at 9.6 and 29.1 respectively. She does have a low white count of 3.4 but she has had a slightly low WBC for several years according to her history and the EMR. She qualifies for oxygen at home. Respiratory educated family and patient on the use of oxygen at home and she will be discharged home today in stable condition. DISCHARGE PLAN: The patient will be discharged home in stable condition. She is to use her oxygen as instructed. She has a followup appointment with her primary care physician, Dr. Cramer, on 05/11/18 at 8:45 AM. She is to resume her previous diet as well as her previous medications She will have [facility] and I have requested that she have a nurses aid three times a week until she can be evaluated by Dr. Cramer. [facility] was called. She will also need physical therapy. She is to return to the hospital or call Dr. Cramer's for any problems or complications. DISCHARGE MEDICATION: 1. Evista. 2. Lipitor. 3. Altace. 4. multivitamin. 5. TriCor. 6. Aspirin. 7. Trileptal. 8. Oxybutynin. 9. Mobic. 10. Zofran. 11. Namzaric 12. Calcium plus vitamin D. 13. Tylenol. 14. Senokot. 15. Lexapro 10 mg p.o. daily. 16. Calamine Lotion. 17. Ibuprofen. 18. Gabapentin. #[id number] [facility]
== END 2018-05-05 15:55 | disposition home health service (06) | DRG 683 ==
LOC: ER 15:23 → MS 19:30
PROVIDERS: ADMIT Nurse Practitioner; ATTEND Nurse Practitioner Acute Care
DX: N17.9 Acute kidney failure, unspecified (principal); B02.23 Postherpetic polyneuropathy; E86.0 Dehydration; M62.81 Muscle weakness (generalized); D53.9 Nutritional anemia, unspecified; I10 Essential (primary) hypertension; F03.90 Unspecified dementia, unspecified severity, without behavioral disturbance, psychotic disturbance, mood disturbance, and anxiety; J47.9 Bronchiectasis, uncomplicated; G89.29 Other chronic pain; E78.5 Hyperlipidemia, unspecified; F32.9 Major depressive disorder, single episode, unspecified; M54.16 Radiculopathy, lumbar region; Z79.82 Long term (current) use of aspirin; Z88.6 Allergy status to analgesic agent; Z88.1 Allergy status to other antibiotic agents; Z88.8 Allergy status to other drugs, medicaments and biological substances

== ENCOUNTER → 2018-05-11 | Outpatient (CLI) | payer OTHER | LOC: GMAE 14:01 | PROVIDERS: ATTEND Family Medicine | DX: R06.02 Shortness of breath (principal) ==

== ENCOUNTER → 2018-05-17 | Outpatient (CLI) | payer OTHER ==
[~2018-05-17] MED LIST: IPRATROPIUM/ALBUTEROL 3 ML VIAL NEB ONE
== END ==
LOC: RESP 09:46
PROVIDERS: ATTEND Family Medicine
DX: R06.02 Shortness of breath (principal)
CPT/HCPCS: 94060; J7620

== ENCOUNTER 2018-05-29 15:35 | Inpatient (IN) | payer OTHER ==
--- NOTE | 2018-05-29 16:26 | RAD ---
1 radiographic chest. 2. Radiographs of the Abdomen. Indication: abd pain, body aches, mild sob Comparison: None. Impression: Cardiomegaly without failure. Dorsal column stimulator device noted. Elevation right hemidiaphragm. Mild basilar atelectasis, otherwise lungs clear. No free air. Bowel gas pattern nonspecific. No abnormal calcifications. Tiny calcified phleboliths within the pelvis. Degenerative changes of the spine noted. Electronically signed by: Srinivasan Lambert MD 05/29/2018 4:24 PM [employer]
[2018-05-29] MEDS ORDERED: SOD CHL 3% *HYPERTONIC* 500ML 160 ML IVS ONE (16:55)
--- NOTE | 2018-05-29 17:27 | ED.PDOC ---
History of Present Illness - General Chief Complaint: General Stated Complaint: FLU LIKE SYMPTOMS/N/V Time Seen by Provider: 05/29/18 16:01 Source: patient, family Exam Limitations: clinical condition - History of Present Illness Initial Comments: the patient is an 83-year-old female brought in EMS with her secondary to progressive weakness and mild altered mental status over the last 24 hours. The patient has also had a mild cough and some hoarseness. She does have extensive chronic pain so it's difficult to tell if she really has any new pain. The patient moves her extremities that she is normally able to but she is weaker than normal and unable to do any of her activities of daily living. reports a mild decrease in her oral intake. She has been urinating less than normal. She does have a mild runny nose and a very mild sore throat. Lung gilman are clear. She is not in any respiratory distress. She does apparently have oxygen at home but has not really been wearing it. Oxygen saturations with EMS on room air were around 90%. Timing/Duration: unsure Severity: moderate Improving Factors: nothing Worsening Factors: nothing Associated Symptoms: loss of appetite, malaise, weakness Allergies/Adverse Reactions: Allergies Ciprofloxacin [From Cipro] Allergy (Verified 05/02/18 20:09) Naproxen [From Aleve] Allergy (Verified 05/02/18 20:09) Home Medications: Ambulatory Orders Aspirin [Aspirin Adult Low Dose] 81 mg PO DAILY 07/18/15 Atorvastatin Calcium [Lipitor] 20 mg PO BEDTIME 07/18/15 Fenofibrate [Tricor] 145 mg PO DAILY 07/18/15 Multiple Vitamins W/ Minerals [Centrum Silver] 1 tab PO DAILY 07/18/15 Raloxifene HCl [Evista] 60 mg PO DAILY 07/18/15 Ramipril [Altace] 5 mg PO DAILY 07/18/15 Meloxicam [Mobic] 15 mg PO BEDTIME 02/09/18 Ondansetron HCl [Zofran] 4 mg PO Q6HR PRN 02/09/18 Oxcarbazepine [Trileptal] 150 mg PO TID 02/09/18 Oxybutynin Chloride 10 mg PO BEDTIME 02/09/18 Acetaminophen [Tylenol] 1,000 mg PO TID PRN 05/02/18 Calamine 1 ml EX DAILY PRN 05/02/18 Calcium Carbonate-Cholecalcife [Calcium + D3 600-200 mg-Unit] 1 tab PO DAILY 05/02/18 Escitalopram [Lexapro] 10 mg PO DAILY 05/02/18 Gabapentin 100 mg PO TID 05/02/18 Ibuprofen [Advil] 400 mg PO Q8H PRN 05/02/18 Memantine HCl-Donepezil HCl [Namzaric 28-10 mg] 1 cap PO BEDTIME 05/02/18 Senna/Docusate Tab [Senokot-S] 2 ea PO BID PRN 05/02/18 Review of Systems - Review of Systems Constitutional: States: malaise, weakness - generalized EENTM: States: nose congestion, throat pain - very mild Respiratory: States: cough - mild Cardiology: States: no symptoms reported Gastrointestinal/Abdominal: States: abdominal pain - chronic Genitourinary: States: no symptoms reported Musculoskeletal: States: back pain - chronic Skin: States: no symptoms reported Neurological: States: other - increased confusion compared to baseline. She does have chronic dementia. Endocrine: States: no symptoms reported All other Systems: No Change from Baseline Past Medical History (General) - Patient Medical History Hx Seizures: No Hx Stroke: No Hx Asthma: No Hx of COPD: No Hx Cardiac Disorders: Yes - Hypercholesterolemia Hx Congestive Heart Failure: No Hx Pacemaker: No Hx Hypertension: Yes Hx Diabetes: No Hx MRSA: No - Vaccination History Hx Tetanus, Diphtheria Vaccination: No Hx Influenza Vaccination: Yes Hx Pneumococcal Vaccination: Yes - Social History Hx Tobacco Use: No Hx Alcohol Use: No Hx Substance Use: No Hx Physical Abuse: No Hx Emotional Abuse: No - Female History Patient is a Female of Child Bearing Age (10 -59 yrs old): No Patient : No Family Medical History - Family History Mother Family History: Unknown Living Status: Father Living Status: Cause of : [place] Physical Exam - Physical Exam General Appearance: Alert, Comfortable, No apparent distress, Other - the patient obviously has significant dementia. Eye Exam: bilateral normal Ears, Nose, Throat: hearing grossly normal, normal pharynx, nasal congestion Neck: full range of motion, supple, other - voice is hoarse Respiratory: lungs clear, normal breath sounds, no respiratory distress, no accessory muscle use Cardiovascular/Chest: normal peripheral pulses, no edema, other - egular rate Peripheral Pulses: radial,right: 2+, radial,left: 2+, dorsalis pedis,right: 2+, dorsalis pedis,left: 2+ Gastrointestinal/Abdominal: non tender, soft Rectal Exam: deferred Back Exam: no CVA tenderness, no vertebral tenderness Extremity: non-tender, normal inspection, no pedal edema, normal capillary refill Neurologic: senior infrastructure architect II-XII nml as tested, alert, normal mood/affect, oriented x 3 Skin Exam: normal color Comments: Vital Signs - 24 hr 05/29/18 15:40 Temperature 99.2 F Pulse Rate [ 100 H MONITOR] Respiratory 20 Rate Blood Pressure 177/86 [LA] O2 Sat by Pulse 95 Oximetry Progress - Progress Progress: 05/29/18 17:36 the patientis an 83-year-old female presenting to the emergency room secondary to progressive weakness and confusion. this is most likely due to significant hyponatremia probably related to diuretic use. The patient is being started on low-flow 3% saline for correction. She does additionally appear to have a viral upper respiratory tract infection. She has not been able to get a urine sample at this point in time to make sure that the hyponatremia is not coming from renal dysfunction due to infection. It is also possible that some of her neurologically acting medications may be contributing to the hyponatremia. The patient is certainly still drowsy from her chronic medications of which many are sedating. Admit for further care and monitoring. Diagnosis is hyponatremia and delirium. She is also unable to perform her activities of daily living in her current state. - Results/Orders Results/Orders: acute abdominal series shows no acute pathology. Laboratory Tests 05/29/18 05/29/18 05/29/18 16:11 16:11 16:11 WBC 4.2 L RBC 3.25 L Hgb 10.8 L Hct 32.5 L MCV 100.1 H MCH 33.2 H MCHC 33.3 RDW 13.5 Plt Count 193 MPV 9.7 Absolute Neuts (auto) 3.00 Absolute Lymphs (auto) 0.60 L Absolute Monos (auto) 0.60 Absolute Eos (auto) 0.00 Absolute Basos (auto) 0.00 Neutrophils % 70.9 Lymphocytes % 14.5 L Monocytes % 13.6 H Eosinophils % 0.5 L Basophils % 0.5 Sodium 126 L Potassium 4.2 Chloride 90 L Carbon Dioxide 28 Anion Gap 12.2 BUN 19 H Creatinine 0.94 BUN/Creatinine Ratio 20.2 H Random Glucose 143 H Serum Osmolality 258.1 L Lactic Acid 0.8 Calcium 9.2 Total Bilirubin 0.8 AST 45 H ALT 29 Alkaline Phosphatase 41 L Creatine Kinase 20 L CK-MB (CK-2) 1.3 CK-MB (CK-2) % Not Reportable Troponin I 0.02 B-Natriuretic Peptide 34.9 Serum Total Protein 5.5 L Albumin 3.3 Globulin 2.2 L Albumin/Globulin Ratio 1.5 Departure - Departure Clinical Impression: Hyponatremia, Delirium, Inability to perform activities of daily living Disposition: Admit Patient Referrals: ANASTACIO HUBBARD MD [Primary Care Provider] - 1-2 Weeks Home Medications: Ambulatory Orders Aspirin [Aspirin Adult Low Dose] 81 mg PO DAILY 07/18/15 Atorvastatin Calcium [Lipitor] 20 mg PO BEDTIME 07/18/15 Fenofibrate [Tricor] 145 mg PO DAILY 07/18/15 Multiple Vitamins W/ Minerals [Centrum Silver] 1 tab PO DAILY 07/18/15 Raloxifene HCl [Evista] 60 mg PO DAILY 07/18/15 Ramipril [Altace] 5 mg PO DAILY 07/18/15 Meloxicam [Mobic] 15 mg PO BEDTIME 02/09/18 Ondansetron HCl [Zofran] 4 mg PO Q6HR PRN 02/09/18 Oxcarbazepine [Trileptal] 150 mg PO TID 02/09/18 Oxybutynin Chloride 10 mg PO BEDTIME 02/09/18 Acetaminophen [Tylenol] 1,000 mg PO TID PRN 05/02/18 Calamine 1 ml EX DAILY PRN 05/02/18 Calcium Carbonate-Cholecalcife [Calcium + D3 600-200 mg-Unit] 1 tab PO DAILY 05/02/18 Escitalopram [Lexapro] 10 mg PO DAILY 05/02/18 Gabapentin 100 mg PO TID 05/02/18 Ibuprofen [Advil] 400 mg PO Q8H PRN 05/02/18 Memantine HCl-Donepezil HCl [Namzaric 28-10 mg] 1 cap PO BEDTIME 05/02/18 Senna/Docusate Tab [Senokot-S] 2 ea PO BID PRN 05/02/18 Decision To Admit - Decistion To Admit Decision to Admit Reason: Medical Nature Decision to Admit Date: 05/29/18 Decision to Admit Time: 17:40
--- NOTE | 2018-05-29 17:43 | HP ---
SUPERVISING PHYSICIAN: Tyree Sainz M.D. CHIEF COMPLAINT: Generalized weakness. HISTORY OF PRESENT ILLNESS: Ms. Ewing is an 83 year-old female patient who was brought to the Emergency Room via EMS at the request of her due to the fact that the patient had apparently had some progressive weakness and some altered mental status over the last 24 hours. The patient noted that she has had a cough and some hoarseness, but does have chronic pain. On arrival to the Emergency Room she was able to move all extremities as normal but was noted to be weak and apparently is unable to perform any of her daily activities of living. reports that she has had significant decrease of oral intake and has not been urinating as normal. She does by history wear oxygen at home and has reportedly not been wearing it but her oxygenation saturations in the Emergency Room and on EMS were around 90%. Laboratory studies showed that she had a significant hyponatremia with sodium 126 and osmolality of 258. Urinalysis was pending prior to admission. She had an abdominal x-ray also completed that showed no acute pathology. Due to the hyponatremia which is felt to be more acute onset as the patient shows to be by her past records runs a sodium in the 130s. Renal function showed to be normal with creatinine of 0.94. She is also, after a review of her medical records, on multiple medications that can be very sedating. Given the fact that she has had a significant change in her mental status and has shown to be hyponatremic, the patient is going to be admitted for continuation of treatment and further evaluation. Initial treatment in the E. R. was started with 3% saline at 160 mL over 4 hours. The patient is admitted in stable condition. PAST MEDICAL HISTORY: 1. Hyperlipidemia. 2. Chronic back pain. 3. Depression. 4. Dizziness and vertigo. 5. Hypertension. 6. Lumbar radiculopathy. 7. Previous herpes zoster infection. PAST SURGICAL HISTORY: 1. Hysterectomy. 2. Left foot surgery. 3. Pain pump stimulator. CURRENT MEDICATIONS: 1. Senokot S two each b.i.d. as needed. 2. Altace 5 mg daily. 3. Evista 60 mg daily. 4. Oxybutynin 10 mg at bedtime. 5. Trileptal 150 mg t.i.d. 6. Zofran 4 mg every 6 hours. 7. Centrum Silver 1 tablet daily. 8. Namzaric 28-10 mg 1 capsule at bedtime. 9. Meloxicam 15 mg at bedtime. 10. Advil 400 mg every 8 hours as needed. 11. Gabapentin 100 mg t.i.d. 12. Tricor 145 mg daily. 13. Lexapro 10 mg daily. 14. Calcium D 1 tablet daily. 15. Calamine as needed. 16. Lipitor 20 mg at bedtime 17. Aspirin low dose 81 mg daily. 18. Tylenol 1,000 mg t.i.d. as needed. ALLERGIES: CIPROFLOXACIN AND NAPROSYN. FAMILY HISTORY: Father due to myocardial infarction. Mother from ruptured appendix. SOCIAL HISTORY: The patient is a nondrinker and nonsmoker. She does not use illicit drugs. She is . Disabled secondary to generalized weakness. Currently lives in [place], [place]. REVIEW OF SYSTEMS: Denies any chills or fevers. No recent weight loss or weight gain. Positive for general malaise. HEENT: Negative for any headaches, vision changes, ear pain, nasal congestion or sore throat. RESPIRATORY: Positive for cough. Negative for hemoptysis, pleuritic chest pain, shortness of breath. CARDIOVASCULAR: Negative for chest pains, palpitations or peripheral edema. GASTROINTESTINAL: Negative for any nausea, vomiting, diarrhea, constipation or abdominal pains. GENITOURINARY: Negative for any dysuria, polyuria or hematuria. MUSCULOSKELETAL: Positive for low back pain. Negative for joint pain or swelling. NEUROLOGIC: Negative for seizures, paresthesias, syncopal episodes, but does have, as noted in History of Present Illness, some dizziness and weakness. ENDOCRINE: Negative for polydipsia, polyuria or polyphagia. INTEGUMENT: With no reported rashes, lesions or wounds. PHYSICAL EXAMINATION: VITAL SIGNS: Temperature 99.2, pulse 100, respirations 20, blood pressure 177/86, satting 95% on nasal cannula at 2 liters. GENERAL: The patient is alert but appears to be comfortable in no apparent distress. She is very slow in her mannerism and speech pattern, but no slurring of speech. HEENT: Tympanic membranes are clear bilaterally. Oropharynx is pink and moist without any lesions. There is some mild nasal congestion bilaterally. NECK: Supple. Full range of motion. No jugular venous distention. CHEST: Lungs are clear to auscultation without any rhonchi, wheezing or rales. CARDIOVASCULAR: Regular rate and rhythm without appreciable murmurs or gallops. ABDOMEN: Soft, non-tender. Positive bowel sounds. EXTREMITIES: Without any clubbing, cyanosis or edema. NEUROLOGIC: Cranial nerves II-XII are grossly intact. There was no obvious neurological focal deficits. She was oriented times three. SKIN: [place], warm and dry. No lesions or rashes noted. LABORATORY: White count 4,200, hemoglobin and hematocrit 10.8 and 32.5 respectively. Platelet count 193,000. Differential shows to be without a left shift. Chemistries show sodium 126, potassium 4.2, BUN 19, creatinine 0.94, serum osmolality 258. Lactic acid 0.8, calcium 9.2. AST was slightly elevated at 45, ALT of 29. Troponin 0.02. Albumin 3.3. Urine sodium was pending. Urine osmolality was pending. Urinalysis was pending. MICROBIOLOGY: Influenza by PCR was negative for both A and B. RADIOLOGY: She had an abdominal x-ray prior to admission and per radiology interpretation showed a normal bowel gas pattern. No free air. Cardiomegaly without any failure. There was note of a dorsal column stimulator device. Please see that final report for full details. ASSESSMENT: 1. Acute hypotonic hyponatremia, uncertain etiology with the patient being symptomatic requiring fairly aggressive treatment without any evidence of seizures. 2. Acute mental status changes with some delirium probably secondary to #1, although cannot completely rule out metabolic encephalopathy due to infectious process as urinalysis was pending at time of admission. 3. Anemia with a macrocytic hyperchromic presentation probably due to chronic illness. 4. Elevated liver enzymes to include AST probably due to chronic Acetaminophen usage. 5. Acute on chronic generalized weakness secondary to #1. 6. 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 7. Hypertension. 8. Chronic dementia with some acute delirium secondary to #1. PLAN: The patient is going to be admitted for further treatment of her hyponatremia. Initially she was given 3% hypertonic saline 40 mL for 4 hours. Will reevaluate a BMP in 4 hours and further adjust IV therapy for slow correction of the hyponatremia. I have requested a [place] placement so we can closely monitor her I's and O's as she is incontinent. I will anticipate that removal within the next 48 hours. Will await urinalysis to further rule out any underlying infectious process. Will get a physical therapy evaluation in the morning. Will resume her home medications as appropriate once those have been updated and verified. She will be on DVT prophylaxis per protocol. Will anticipate length of stay to be at least 2 to 4 days. With the patient being advanced age and multiple co-morbidities requiring slow correction of her sodium to prevent any complications, will utilize more likely normal saline and adjust as needed based off lab results. Will plan to repeat labs again in the morning. Until she can transition to outpatient management will continue to monitor and treat as needed. #[id number] [facility]
[2018-05-29] MEDS ORDERED: ONDANSETRON INJ 4 MG/2 ML VIAL IV PRN (17:51)
[2018-05-29] MEDS ORDERED: MAGNESIUM HYDROXIDE 30 ML UD PO PRN (17:51)
[2018-05-29] MEDS ORDERED: SODIUM CHLORIDE 0.9% (FLUSH) 10 ML SYG IV PRN (17:51)
[2018-05-29] MEDS ORDERED: IV SET AND CAP CHANGE INJ INJ SCH (18:00)
[2018-05-30] MEDS: ACETAMINOPHEN 325 MG TAB PO PRN ×3 (02:00→22:54)
[2018-05-30] MEDS ORDERED: OXcarbazepine 300 MG TAB PO ONE (08:52)
[2018-05-30] MEDS ORDERED: NON-FORMULARY MEDICATION 1 EA MIS (Oxcarbazepine [Trileptal] 150 MG) PO SCH (09:00)
[2018-05-30] MEDS ORDERED: NON-FORMULARY MEDICATION 1 EA MIS (Potassium Chloride [Potassium Chloride Er] 20 MEQ) PO SCH (09:00)
[2018-05-30] MEDS ORDERED: POTASSIUM CHLORIDE 20 MEQ TAB ONE (09:06)
[2018-05-30] MEDS: ESCITALOPRAM 10 MG TAB PO SCH (09:09)
[2018-05-30] MEDS: RAMIPRIL 5 MG CAP PO SCH (09:09)
[2018-05-30] MEDS: ENOXAPARIN SODIUM 40 MG/0.4 ML SYG SUBCU SCH (09:11)
[2018-05-30] MEDS: SODIUM CHLORIDE 0.9% 1000ML 1,000 ML IVS PRN ×2 (09:41→21:54)
--- NOTE | 2018-05-30 15:19 | PN ---
SUPERVISING PHYSICIAN: Tyree Sainz MD DATE: 05/30/18 SUBJECTIVE: The patient is much more alert this morning. She says she feels a little bit better. She had no complications with the hypertonic saline infusion. She remains afebrile. OBJECTIVE: VITAL SIGNS: Temperature 97.7. Pulse 55. Blood pressure 142/79. Respirations 18. Saturation 99% on 3 liters nasal cannula. I&Os show negative balance of 445, 180 in, 625 out. Weight 68.1 kg. GENERAL: The patient is resting comfortably and appears to be in no acute distress. She is much more alert than on admission. CHEST: Lungs clear to auscultation bilaterally, slightly diminished towards the bases. HEART: Regular rate and rhythm without any appreciable murmurs, gallops, or rubs. ABDOMEN: Soft, nontender. Positive bowel sounds. EXTREMITIES: Without edema. NEUROLOGIC: Alert and oriented times three. LABORATORY: White count 3,500, hemoglobin 10, hematocrit 30.7, platelet count 168,000. Differential without a left shift. Chemistries show improved sodium. Last night, repeat sodium was 129. This morning, it is 132. Chloride 99, BUN 17, creatinine 0.84, calcium 8.5, TSH 2.51. Liver functions show elevated AST which is improving down to 43, ALT within normal limits as well as alkaline phosphatase. MICROBIOLOGY: Urine culture pending. RADIOLOGY: No additional radiographic studies this morning. ASSESSMENT: 1. Acute hypotonic hyponatremia, uncertain etiology, probably related to medication regimen with the patient started on amitriptyline with the patient showing good response to 3% hypertonic saline. 2. Acute mental status change with some delirium, secondary to #1, improving with saline infusion. 3. Macrocytic/hyperchromic anemia, probably due to chronic illness. 4. Elevated liver enzymes to include AST, uncertain etiology, but probably due to chronic acetaminophen usage. 5. 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 6. Hypertension. 7. Chronic dementia with some acute delirium on admission, but back to baseline. PLAN: We will continue with normal saline today at 80 an hour. I will repeat a BMP in the afternoon. Once her sodium does normalize, we will saline lock her and plan to repeat labs in the morning to further assess her sodium levels. I will check a urine sodium once again in the morning. I resumed her home medications and it is noted that new medication on her regimen is amitriptyline which is at a fairly high dose to start out with. That was replacing gabapentin. We will continue to monitor the patient closely. Should she show stabilization, we will anticipate discharge probably either late Tuesday or morning. The patient is no longer safe to return home as she is frail and elderly as well as her and she voiced along with her daughter that they would like to pursue placement at a local care facility such as [facility] or [facility]. Those referrals will be done as soon as decision is made which one the patient's family wants to be referred to. Given that she does have multiple comorbidities and regimen of medication that is possibly resulting in some of her hyponatremia and will need probably some modification, she certainly would warrant another 24 to 48 hours to further stabilize her medication regimen. I will also probably touch base with Dr. Dejesus in the morning once we have a new sodium level after she has been saline locked overnight. Until then, we will continue to monitor and treat as needed. #[id number] [facility]
[2018-05-30] MEDS ORDERED: FUROSEMIDE INJ 20 MG/2 ML VIAL IV ONE (20:07)
[2018-05-30] MEDS: OXcarbazepine 300 MG TAB PO SCH (20:57)
[2018-05-30] MEDS: AMITRIPTYLINE HCL 25 MG TAB PO SCH (20:57)
[2018-05-30] MEDS: OXYBUTYNIN CL 5 MG TAB PO SCH (20:57)
[2018-05-31] MEDS ORDERED: PANTOPRAZOLE SODIUM IV 40 MG VIAL ONE (06:40)
[2018-05-31] MEDS: POTASSIUM CHLORIDE 20 MEQ TAB PO SCH (10:10)
[2018-05-31] MEDS: RAMIPRIL 5 MG CAP PO SCH (10:10)
[2018-05-31] MEDS: OXcarbazepine 300 MG TAB PO SCH ×2 (10:11→21:09)
[2018-05-31] MEDS: ENOXAPARIN SODIUM 40 MG/0.4 ML SYG SUBCU SCH (10:11)
[2018-05-31] MEDS: ESCITALOPRAM 10 MG TAB PO SCH (10:11)
[2018-05-31] MEDS ORDERED: SODIUM CHLORIDE 0.9% (FLUSH) 10 ML SYG IV ONE (11:04)
[2018-05-31] MEDS: ACETAMINOPHEN 325 MG TAB PO PRN (17:27)
--- NOTE | 2018-05-31 21:04 | PN ---
DATE: 05/31/18 SUPERVISING PHYSICIAN: Tyree Sainz M.D. SUBJECTIVE: The patient still feels weak. She is very depressed and tearful. She has been afebrile. She has had no nausea or vomiting. OBJECTIVE: VITAL SIGNS: Temperature 98.5, pulse 80, blood pressure 112/73, respirations 16, satting 98% on nasal cannula at 3 liters. I's and O's show a positive balance of 207 with 2332 in, 2025 out. Weight 69.3 kg. GENERAL: The patient appears to be in no distress acutely. She is very tearful but she is alert. CHEST: Lungs are clear to auscultation. HEART: Regular rate and rhythm. ABDOMEN: Soft, non-tender. Positive bowel sounds. EXTREMITIES: Without any edema. NEUROLOGIC: She is alert and oriented times three. LABORATORY: white count is 3,300, hemoglobin 9.7, hematocrit 28.5 with a macrocytic RBC indices with a platelet count of 169 and differential showing to be without a left shift. Chemistries today after hypertonic saline sodium was up to 134, potassium is normal at 3.8, BUN 16, creatinine 0.84, calcium 7.9, TSH 2.51. MICROBIOLOGY: Urine culture is pending. ASSESSMENT: 1. Acute hypotonic hyponatremia probably related to medication regimen to include Trileptal with concerns for possible SAIDH but showing good response to 3% hypertonic saline and saline infusion. 2. Acute mental status change with some delirium secondary to #1, improving with saline infusion and normalizing sodium levels. 3. Macrocytic anemia probably Vitamin B12 deficiency and exacerbated by chronic illness. 4. Elevated liver enzymes to include AST, uncertain etiology but probably due to chronic Acetaminophen usage. 5. 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 6. Hypertension, stable. 7. Chronic dementia with some acute delirium on admission secondary to #1 now back to baseline levels. PLAN: Will saline lock her today as her sodium is near normal levels. Will plan to repeat a BMP tonight to further assess for any further sodium loss. My thought is that probably Trileptal is the resulting factor in her developing hyponatremia. Tomorrow if the levels do show that they have dropped significantly, certainly will need to touch base with Dr. Dejesus in regards to those findings. Until we get those results and transition to outpatient management will continue to monitor and treat as needed. #[id number] [facility]
[2018-05-31] MEDS: AMITRIPTYLINE HCL 25 MG TAB PO SCH (21:10)
[2018-05-31] MEDS: OXYBUTYNIN CL 5 MG TAB PO SCH (21:12)
[2018-06-01] MEDS: ACETAMINOPHEN 325 MG TAB PO PRN ×2 (00:34→11:07)
[2018-06-01] MEDS: RAMIPRIL 5 MG CAP PO SCH (08:16)
[2018-06-01] MEDS: ESCITALOPRAM 10 MG TAB PO SCH (08:16)
[2018-06-01] MEDS: ENOXAPARIN SODIUM 40 MG/0.4 ML SYG SUBCU SCH (08:16)
[2018-06-01] MEDS: OXcarbazepine 300 MG TAB PO SCH (08:17)
[2018-06-01] MEDS: POTASSIUM CHLORIDE 20 MEQ TAB PO SCH (08:19)
[2018-06-01 13:28] VITALS: BP 107/71; TEMP 97.8; O2SAT 98
--- NOTE | 2018-06-12 14:53 | DS ---
SUPERVISING PHYSICIAN: Tyree Sainz MD ADMISSION DIAGNOSIS: 1. Acute hypotonic hyponatremia, uncertain etiology with the patient being symptomatic requiring fairly aggressive treatment without any evidence of seizures. 2. Acute mental status changes with some delirium probably secondary to #1, although cannot completely rule out metabolic encephalopathy due to infectious process as urinalysis was pending at time of admission. 3. Anemia with a macrocytic hyperchromic presentation probably due to chronic illness. 4. Elevated liver enzymes to include AST probably due to chronic acetaminophen usage. 5. Acute on chronic generalized weakness secondary to #1. 6. 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 7. Hypertension. 8. Chronic dementia with some acute delirium secondary to #1. DISCHARGE DIAGNOSIS: 1. Acute hypotonic hyponatremia probably related to medication regimen to include Trileptal with concerns for possible SAIDH but showing good response to 3% hypertonic saline and saline infusion. 2. Acute mental status change with some delirium secondary to #1, improving with saline infusion and normalizing sodium levels. 3. Macrocytic anemia probably Vitamin B12 deficiency and exacerbated by chronic illness. 4. Elevated liver enzymes to include AST, uncertain etiology but probably due to chronic Acetaminophen usage. 5. 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 6. Hypertension, stable. 7. Chronic dementia with some acute delirium on admission secondary to #1 now back to baseline levels. REASON FOR HOSPITALIZATION: Ms. Ewing is an 83 year-old female patient who was brought to the Emergency Room via EMS at the request of her due to the fact that the patient had apparently had some progressive weakness and some altered mental status over the last 24 hours. The patient noted that she has had a cough and some hoarseness, but does have chronic pain. On arrival to the Emergency Room she was able to move all extremities as normal but was noted to be weak and apparently is unable to perform any of her daily activities of living. reports that she has had significant decrease of oral intake and has not been urinating as normal. She does by history wear oxygen at home and has reportedly not been wearing it but her oxygenation saturations in the Emergency Room and on EMS were around 90%. Laboratory studies showed that she had a significant hyponatremia with sodium 126 and osmolality of 258. Urinalysis was pending prior to admission. She had an abdominal x-ray also completed that showed no acute pathology. Due to the hyponatremia which is felt to be more acute onset as the patient shows to be by her past records runs a sodium in the 130s. Renal function showed to be normal with creatinine of 0.94. She is also, after a review of her medical records, on multiple medications that can be very sedating. Given the fact that she has had a significant change in her mental status and has shown to be hyponatremic, the patient is going to be admitted for continuation of treatment and further evaluation. Initial treatment in the E. R. was started with 3% saline at 160 mL over 4 hours. The patient was admitted in stable condition. LABORATORY: CBC showed white count 4,200. At discharge, it was 3,300. Hemoglobin and hematocrit stabilized at 9.7 and 29.3. RBC indices indicated a macrocytosis with platelet count 171,000. On discharge, differential was without a left shift. Chemistries showed initial sodium at 126. After 3% saline and continued IV infusion, sodium normalized at 131. Electrolytes on admission showed normal potassium of 4.2, at discharge was 4.3. BUN 19 on admission, discharge was 15. Creatinine on admission was 0.94, on discharge was 0.75. Initial osmolality serum was 258, at discharge 262. AST showed some elevation on admission at 45 and returning to baseline to 43 prior to discharge. ALT was within normal limits. Troponin was 0.02. TSH was normal at 2.51. Urinalysis showed a large amount of blood and small amount of leukocyte esterase with microscopic revealing 5 to 10 RBCs, 3 to 5 WBCs, 5 to 10 epithelials, no bacteria. Serum osmolality was 553. She had several sodium urine that was initially 77. After 3% saline, it was up to 97 and on the morning of discharge was 99. MICROBIOLOGY: Final urine culture results showed 250,000 colony forming units per mL, urogenital blanca, no common pathogens. Influenza A and B by PCR was negative for both A and B. RADIOLOGY: Abdominal x-ray on admission per radiologic interpretation showed bowel gas pattern to be nonspecific. Please see that report for details. No additional radiographic studies were performed. HOSPITAL COURSE: Ms. Ewing was admitted on 05/29/18 for hyponatremia, symptomatic and started on 3% hypertonic saline. This was changed to normal saline after 4 hour infusion with close monitoring of her sodium levels. She level off her sodium initially at 134 and she was saline locked at 24 hours and was maintaining 131 as a sodium level prior to discharge and being asymptomatic . She was clinically stable and improving and felt clinically improved enough to be continued on outpatient management. PLAN: Ms. Ewing was discharged on 06/01/18 with instructions to followup with her primary care provider, Dr. Cramer, in one to two weeks. She was to discharge back to [facility] and resume home medications as per JUN. Activities were as per physical therapy to evaluate and treat. She was to wear oxygen via nasal cannula at 2 liters and keep saturation between 92% and 94%. Diet was to resume usual diet and advanced as tolerated. New prescriptions at discharge included: 1. Magnesium hydroxide 30 mg daily as needed for constipation. 2. Zofran 4 mg q.6h. as needed for nausea and vomiting, no refills. CONDITION AT DISCHARGE: Stable and improving. DISPOSITION: The patient was discharged back to care facility. #[id number] MTDD
== END 2018-06-01 16:50 | DRG 644 ==
LOC: ER 15:35 → MS 17:42 → OBSVTOIN 17:42
PROVIDERS: ADMIT Nurse Practitioner Family; ATTEND Nurse Practitioner Family
DX: E22.2 Syndrome of inappropriate secretion of antidiuretic hormone (principal); F05 Delirium due to known physiological condition; B02.29 Other postherpetic nervous system involvement; D51.9 Vitamin B12 deficiency anemia, unspecified; R74.8 Abnormal levels of other serum enzymes; T39.1X5A Adverse effect of 4-Aminophenol derivatives, initial encounter; G89.4 Chronic pain syndrome; I10 Essential (primary) hypertension; F03.90 Unspecified dementia, unspecified severity, without behavioral disturbance, psychotic disturbance, mood disturbance, and anxiety; E78.00 Pure hypercholesterolemia, unspecified; F32.9 Major depressive disorder, single episode, unspecified; M54.16 Radiculopathy, lumbar region; Y92.009 Unspecified place in unspecified non-institutional (private) residence as the place of occurrence of the external cause; Z96.89 Presence of other specified functional implants; Z79.82 Long term (current) use of aspirin; Z79.1 Long term (current) use of non-steroidal anti-inflammatories (NSAID); Z79.899 Other long term (current) drug therapy

== ENCOUNTER → 2018-06-21 | Outpatient (CLI) | payer OTHER | LOC: GOCC 11:00 | PROVIDERS: ATTEND Family Medicine | DX: N39.0 Urinary tract infection, site not specified (principal) ==

== ENCOUNTER → 2018-06-30 | Outpatient (CLI) | payer OTHER ==
--- NOTE | 2018-06-30 16:18 | CT ---
EXAM: Head CLINICAL HISTORY: HALLUCINATIONS /VISUAL HALLUCINATIONS COMPARISON STUDY: August 15, 2015 CT head TECHNICAL: Non-contrasted CT images of the brain were performed. FINDINGS: There is mild diffuse cerebral and cerebellar atrophy. There is mild periventricular white matter low-density changes suggesting microvascular disease. Small basal ganglion lacunar infarcts are present. There is no intracranial hemorrhage, mass, or mass effect. There are no imaging findings that would suggest an acute territorial infarction. The calvarium is intact. IMPRESSION: MILD ATROPHY AND MICROVASCULAR WHITE MATTER CHANGES WITHOUT CHANGES OF AN ACUTE INTRACRANIAL ABNORMALITY. ACUTE INFARCT MAY BE INAPPARENT ON A BACKGROUND OF MICROVASCULAR DISEASE. MRI CAN BE PERFORMED IF CLINICALLY INDICATED. This exam was performed according to our departmental dose-optimization program, which includes automated exposure control, adjustment of the mA and/or kV according to patient size and/or use of iterative reconstruction technique. Electronically signed by: David Lalmas MD 06/30/2018 4:15 PM [facility]
== END ==
LOC: CT 10:57
PROVIDERS: ATTEND Family Medicine
DX: R44.1 Visual hallucinations (principal); R41.9 Unspecified symptoms and signs involving cognitive functions and awareness; G31.9 Degenerative disease of nervous system, unspecified

== ENCOUNTER → 2018-07-26 | Outpatient (CLI) | payer OTHER | LOC: GOCC 17:01 | PROVIDERS: ATTEND Family Medicine | DX: N39.0 Urinary tract infection, site not specified (principal) ==

== ENCOUNTER → 2018-08-31 | Outpatient (CLI) | payer OTHER | LOC: GMAE 15:12 | PROVIDERS: ATTEND Family Medicine | DX: G60.9 Hereditary and idiopathic neuropathy, unspecified (principal) ==

== ENCOUNTER → 2018-11-22 | Outpatient (CLI) | payer OTHER | LOC: YCHH 11:36 | PROVIDERS: ATTEND Family Medicine | DX: N39.0 Urinary tract infection, site not specified (principal) ==

== ENCOUNTER → 2018-12-06 | Outpatient (CLI) | payer OTHER | LOC: YCHH 10:26 | PROVIDERS: ATTEND Family Medicine | DX: N39.0 Urinary tract infection, site not specified (principal) ==

== ENCOUNTER → 2019-01-18 | Outpatient (CLI) | payer OTHER ==
--- NOTE | 2019-01-22 11:16 | MAM ---
EXAM DESCRIPTION: 3D Screening BILATERAL : Digital Mammography. CLINICAL HISTORY: 83 years Female ANNUAL SCREENING . No complaints. No personal or family history of breast cancer. Menarche age 10. Childbirth. Postmenopausal 20+ years. No HRT. Lifetime risk of developing breast cancer (Tyrer-Cuzick model)(%): 1.1. COMPARISON: Bilateral screening digital breast tomosynthesis 01/19/2018.. 2-D digital screening bilateral mammography 08/25/2016. TECHNIQUE: Bilateral CC and MLO projection full-field images, digital tomosynthesis mammographic technique. Bilateral digital 2-D full-field MLO images. CAD not available for tomosynthesis or 2-D images. FINDINGS: The breast parenchymal density pattern is: Scattered areas of fibroglandular density. No skin thickening or nipple retraction. Bilateral vascular calcifications. Bilateral solitary microcalcifications. Left breast axillary lymph nodes. No new focal, stellate mass or density, focal asymmetry , and no suspicious microcalcifications bilaterally. Stable mammograms compared to prior study. Taking into account, differences in mammographic technique. IMPRESSION: Benign exam. BIRAD CATEGORY: 2 BENIGN FINDINGS. RECOMMENDATIONS: FOLLOW UP: Routine digital bilateral mammographic screening, one year interval from December 2018. Written communication explaining the IMPRESSION and follow-up, will be mailed to the patient and referring health care provider. According to the [employer], yearly mammograms are recommended starting at age 40 and continuing as long as a woman is in good health. Any breast change noted on a breast self-exam should be reported promptly to the patient's healthcare provider. Breast MRI is recommended for women with an approximately 20-25% or greater lifetime risk of breast cancer, including women with a strong family history of breast or ovarian cancer and women who have been treated for Hodgkin's disease. A negative mammographic report should not delay tissue diagnosis in patients with significant clinical history or physical findings. Extremely dense breast tissue limits the sensitivity of digital mammography. Electronically signed by: Antelmo Ferraro MD 01/22/2019 11:14 AM CDT
== END ==
LOC: MAMMO 13:00
PROVIDERS: ATTEND Family Medicine
DX: Z12.31 Encounter for screening mammogram for malignant neoplasm of breast (principal)

== ENCOUNTER → 2019-01-26 | Outpatient (CLI) | payer OTHER | LOC: YCHH 09:15 | PROVIDERS: ATTEND Family Medicine | DX: I10 Essential (primary) hypertension (principal); D64.9 Anemia, unspecified; E78.5 Hyperlipidemia, unspecified; E03.9 Hypothyroidism, unspecified ==

== ENCOUNTER → 2019-11-16 | Outpatient (CLI) | payer OTHER ==
--- NOTE | 2019-11-16 11:41 | CT ---
EXAM DESCRIPTION: CT lumbar spine without contrast CLINICAL HISTORY: 84 years, Female, SCIATICA LEFT SIDE COMPARISON: Previous CT lumbar spine December 01, 2016 TECHNIQUE: Lumbar CT with thin-section axial imaging with reconstructed MPR images reviewed as well. FINDINGS: Sagittal reformatted images show accentuated lordotic curvature of the lumbar spine. Similar curvature was seen on the previous study in November 2016. Sagittal images show bilateral L5 spondylolysis with grade 2 anterolisthesis of L5 on S1 measuring 1.2 cm on the present study compared to 0.8 cm on the previous exam. Vacuum disc phenomenon is noted. Large anterior bulge of disc material at L5-S1. Severe bilateral neural foraminal narrowing at this level. Mild degenerative anterolisthesis of L4 on L5 measures 3 mm. This is unchanged from previous. Degenerative retrolisthesis of L2 on L3 measures 6 mm on present study unchanged. Since the previous exam, compression of L1 has developed with lesser compression of T12. Midline and left L1 compression up to 70% loss of vertebral body height is seen. Anterior midline leftward compression of the lower T12 vertebral body with 50% loss of height anteriorly. These findings are most consistent with old injury or injuries. Compressions are new compared to the previous study. Retropulsed fragment at L1 extends posteriorly up to 4 mm. The AP diameter the spinal canal at this level measures 1.37 years, not significantly stenotic due to retropulsed fragment. The tip of the conus is not well seen on CT due to artifacts. Vacuum disc phenomenon is seen at all lower thoracic and lumbar levels except L3-4. TENS unit electrode leads enter the lower T-spine and extends cephalad beyond the [id number]. Marked degenerative changes in the spinous processes related to multilevel degenerative apposition. No acute appearing vertebral compression. On the right side, moderately severe to severe neural foraminal narrowing is seen at L1-2, L2-3, L4-5 and L5-S1 levels. On the left, moderately severe to severe neural foraminal narrowing is seen at L1-2, L2-3, and L5-S1 levels. Mild to moderate neural foraminal narrowing bilaterally at T12-L1. Coronal images show mild rightward degenerative scoliotic curvature which appears similar to previous study. Spleen appears large. Cyst in the posterior right kidney measures 11 Hounsfield units in density and 3.8 cm in diameter. Axial images were obtained through the disc levels. T9-10, T10-11, and T11-12 levels show minimal posterior annular bulges and no significant spinal stenosis. Neural foraminal narrowing is moderately severe to severe bilaterally at T9-10 and T10-11. T12-L1: Moderate diffuse posterior annular bulge without significant spinal stenosis at the disc level. Moderate facet hypertrophic changes with thickened ligamentum flavum. At the level of retropulsed L1 posterior disc margin, spinal canal appears stenotic measuring 8 mm in AP dimension and 5 mm in mediolateral width. Thickened ligamentum flavum contributes to central canal stenosis. L1-L2: Moderate diffuse posterior annular bulge. Mild to moderate narrowing of the spinal canal with facet hypertrophy and ligament flavum thickening. Severe bilateral neural foraminal narrowing. L2-3: Mild posterior annular bulge without significant spinal stenosis. Moderate facet hypertrophic changes with ligamentum flavum thickening. Severe bilateral neural foraminal narrowing. L3-4: Moderate diffuse posterior annular bulge. Marked facet hypertrophy and ligamentum flavum thickening narrows the spinal canal to 7 mm in AP dimension. Neural foraminal narrowing is mild. L4-5: Moderate diffuse posterior annular bulge. Mild narrowing of the spinal canal to 1.3 cm in AP dimension. Marked facet and ligamentum flavum hypertrophy. Exuberant callus formation from bilateral spondylolysis, right more than left. Moderate neural foraminal narrowing on the right with mild neural foraminal narrowing on the left. L5-S1: There is uncovering of the posterior annulus by grade 2 anterolisthesis. No significant spinal stenosis. Severe bilateral neural foraminal narrowing compressing the exiting L5 nerve roots. Upper sacrum appears intact. Degenerative changes at the SI joints. IMPRESSION: Bilateral L5 spondylolysis with grade 2 anterolisthesis of L5 on S1. This has progressed since the previous study. T12 and L1 compressions appear chronic. Spinal stenosis behind upper L1, at the L1-2 disc level and at L3-4 disc level as described. Neural foraminal narrowing at multiple levels as described above. This exam was performed according to our departmental dose-optimization program, which includes automated exposure control, adjustment of the mA and/or kV according to patient size and/or use of iterative reconstruction technique. Electronically signed by: Thomas Tee MD 11/16/2019 11:40 AM CDT
== END ==
LOC: CT 08:00
PROVIDERS: ATTEND Family Medicine
DX: M47.896 Other spondylosis, lumbar region (principal); M43.16 Spondylolisthesis, lumbar region; M48.061 Spinal stenosis, lumbar region without neurogenic claudication; M51.85 Other intervertebral disc disorders, thoracolumbar region; M54.32 Sciatica, left side

== ENCOUNTER → 2020-01-31 | Outpatient (CLI) | payer OTHER | LOC: YCHH 12:41 | PROVIDERS: ATTEND Family Medicine | DX: R79.89 Other specified abnormal findings of blood chemistry (principal); D64.9 Anemia, unspecified; E78.2 Mixed hyperlipidemia; E03.9 Hypothyroidism, unspecified; R30.0 Dysuria ==

== ENCOUNTER → 2020-03-17 | Outpatient (CLI) | payer OTHER ==
--- NOTE | 2020-03-17 14:33 | NM ---
EXAM DESCRIPTION: Bone Scan, Whole Body CLINICAL HISTORY: 84 years Female, INTERVERTEBRAL DISC DISORDERS WITH RADICULOPATHY, L-SPINE COMPARISON: CT lumbar spine dated November 16, 2019 TECHNIQUE: Following intravenous administration of 25.4 mCi technetium 99m MDP, whole body and spot scintigraphic imaging was performed. SPECT imaging acquired from the mid thoracic spine down to the lumbar spine was also obtained. FINDINGS: Skull: Unremarkable. Spine: Increased uptake of L1 and L2 which corresponds with compression deformity and sclerotic endplate changes on comparison CT lumbar spine of November 16, 2019. Sclerotic endplate changes on comparison lumbar CT most likely represents a chronic process. Uptake on bone scan can be seen with acute as well as chronic process up to a year. Please correlate clinically for focal point tenderness. Degenerative uptake of the lower lumbar spine, particularly at L5-S1 level. Thorax: Symmetric homogenous physiologic activity bilateral ribs and sternum. Abdomen and pelvis: No concerning osteoblastic lesions of the osseous pelvis. Physiologic urinary activity bilateral kidneys and urinary bladder. Urine contamination in the expected location of the external female genitalia region. Extremities: Degenerative uptake of the shoulders (right greater than left), elbows, wrists, hips, left knee (severe), and right foot. Changes of the right knee arthroplasty. SPECT imaging shows degenerative uptake of the thoracic and lumbar spine involving the mid to lower thoracic spine and opposing endplates of L5-S1 level. Increased uptake at L1 and L2 level as described above. IMPRESSION: 1. Increased uptake of L1 and L2 corresponding with compression deformity and sclerotic endplate changes on comparison CT lumbar spine of November 16, 2019. Sclerotic endplate changes on comparison lumbar CT most likely represents a chronic process. Uptake on bone scan can be seen with acute as well as chronic compression deformity fracture process up to a year. Please correlate clinically for focal point tenderness. 2. Degenerative uptake of the appendicular skeleton as above. Electronically signed by: Sadiq Wallace MD 03/17/2020 2:32 PM [facility]
== END ==
LOC: NM 09:00
PROVIDERS: ATTEND Psychiatry & Neurology Neurology
DX: M51.16 Intervertebral disc disorders with radiculopathy, lumbar region (principal)

== ENCOUNTER → 2020-05-02 | Outpatient (CLI) | payer OTHER ==
--- NOTE | 2020-05-02 17:48 | RAD ---
EXAM DESCRIPTION: Pelvis CLINICAL HISTORY: PAIN IN LEFT HIP COMPARISON: None. TECHNIQUE: AP pelvis FINDINGS: Phleboliths are observed in the pelvis. Degenerative changes are seen in the pubic symphysis. Degenerative changes are observed in both hips. No hip or pelvic fracturing is detected. Degenerative changes are observed in the lower lumbar spine. IMPRESSION: Degenerative changes are observed. No fracturing is detected. Electronically signed by: Sadiq Du MD 05/02/2020 5:47 PM [facility]
--- NOTE | 2020-05-02 17:50 | RAD ---
EXAM DESCRIPTION: Knee,Left Complete CLINICAL HISTORY: PAIN IN LEFT KNEE COMPARISON: None. TECHNIQUE: 4 views left FINDINGS: Advanced degenerative changes are observed in the lateral joint compartment. A genu valgus is observed. Mild patellofemoral joint arthritis is seen. No fracture is detected. IMPRESSION: Degenerative changes are observed in the left knee most pronounced in the lateral joint compartment. Electronically signed by: Sadiq Du MD 05/02/2020 5:49 PM [facility] [place]
== END ==
LOC: RAD 08:31
PROVIDERS: ATTEND Orthopaedic Surgery
DX: M17.12 Unilateral primary osteoarthritis, left knee (principal); M16.12 Unilateral primary osteoarthritis, left hip